=== PATIENT | female | born 1945 | race Caucasian/White ===

== ENCOUNTER → 2017-04-24 | Outpatient (CLI) | payer OTHER, MEDICARE | LOC: BMCIMAGING 13:16 | PROVIDERS: ATTEND Internal Medicine | DX: Z12.31 Encounter for screening mammogram for malignant neoplasm of breast (principal) | CPT/HCPCS: G0202 ==

== ENCOUNTER → 2017-05-08 | Outpatient (CLI) | payer OTHER, MEDICARE ==
[~2017-05-08] MED LIST: IOPAMIDOL (ISOVUE 370) 100 ML BTL IV ONE
== END ==
LOC: CIMAGING 14:11
PROVIDERS: ATTEND Internal Medicine
DX: I87.1 Compression of vein (principal); I65.23 Occlusion and stenosis of bilateral carotid arteries; M47.892 Other spondylosis, cervical region
CPT/HCPCS: 70498; Q9967

== ENCOUNTER → 2017-06-19 | Outpatient (CLI) | payer OTHER, MEDICARE | LOC: CIMAGING 11:55 | PROVIDERS: ATTEND Internal Medicine Cardiovascular Disease | DX: I74.09 Other arterial embolism and thrombosis of abdominal aorta (principal); I74.3 Embolism and thrombosis of arteries of the lower extremities; I77.89 Other specified disorders of arteries and arterioles | CPT/HCPCS: 75635; 93880; Q9967 ==

== ENCOUNTER 2017-07-19 13:28 | Inpatient (IN) | payer OTHER, MEDICARE ==
[2017-07-19] MEDS ORDERED: diphenhydrAMINE 25 MG CAP PO ONE ×2 (13:33→14:01)
[2017-07-19] MEDS ORDERED: ASPIRIN EC 325 MG TAB PO ONE ×2 (13:33→14:01)
[2017-07-19] MEDS ORDERED: FAMOTIDINE 20 MG TAB PO ONE (13:33)
[2017-07-19] MEDS ORDERED: NS 1,000 ML IV ONE ×2 (13:33→17:00)
[2017-07-19] MEDS ORDERED: DIAZEPAM 5 MG TAB PO ONE (13:33)
--- NOTE | 2017-07-19 13:59 | CPEKG ---
Heart Rate: 74 RR Interval: 811 P-R Interval: 196 QRSD Interval: 100 QT Interval: 424 QTC Interval: 471 P Liberty: 68 QRS Liberty: -4 T Wave Liberty: 55 EKG Severity - ABNORMAL ECG - EKG Impression: SINUS RHYTHM EKG Impression: PROBABLE ANTEROSEPTAL INFARCT, AGE INDETERM Electronically Signed By: Chase Napier 20-Jul-2017 20:25:34
[2017-07-19] MEDS ORDERED: DIAZEPAM 5 MG TAB ONE (14:01)
[2017-07-19] MEDS ORDERED: FAMOTIDINE 20 MG TAB ONE (14:01)
[2017-07-19 14:11] LABS: % IMMATURE GRANULYOCYTES 0.3 % (0.0-1.1); ABSOLUTE IMMATURE GRANULOCYTES 0.03 10^3/uL (0.00-0.10); ADD DIFF? NO; ADD MORPH? NO; ADD SCAN? NO; ATYPICAL LYMPHOCYTE FLAG 10 (0-99); FRAGMENT RBC FLAG 0 (0-99); HEMATOCRIT 38.4 % (38.0-47.0); HEMOGLOBIN 13.4 g/dL (12.6-16.3); LEFT SHIFT FLG 0 (0-99); LIPEMIA HEMOLYSIS FLAG 90 (0-99); MEAN CELL HEMOGLOBIN 32.1 pg (27.9-34.1); MEAN CELL HEMOGLOBIN CONCENTR. 34.9 g/dL (32.4-36.7); MEAN CELL VOLUME 91.9 fL (81.5-99.8); MEAN PLATELET VOLUME 10.3 fL (8.7-11.7); PLATELET CLUMPS FLAG 0 (0-99); PLATELET COUNT 249 10^3/uL (150-400); RED BLOOD CELL COUNT 4.18 10^6/uL (4.18-5.33); RED CELL DISTRIBUTION WIDTH 13.2 % (11.5-15.2)
[2017-07-19 14:25] LABS: INR 0.93 (0.83-1.16); PROTIME(PATIENT) 12.7 SEC (12.0-15.0)
--- NOTE | 2017-07-19 14:28 | PDHPUP ---
History & Physical Update H&P update statement: This history and physical update is based on an assessment of the patient which was completed after admission or registration (within 24 hours), but prior to the surgery/procedure. H&P update: H&P reviewed & patient examined, no change in patient's condition since H&P completed
--- NOTE | 2017-07-19 14:28 | PDPROPOC ---
Sedation Plan of Care Sedation Plan of Care: vital signs stable, mental status noted, patient educated of risks, benefits, alternatives, patient can tolerate sedation ASA Classification: ASA 2 Planned drugs: fentanyl, midazolam Mallampati Score: Class 2 Mallampati Reference Image: Patient passed 3-3-2 rule?: Yes
[2017-07-19] MEDS ORDERED: fentaNYL 100 MCG/2 ML INJ ONE ×2 (14:29→15:18)
[2017-07-19] MEDS ORDERED: LIDOCAINE 1% 300 MG/30 ML SDV ONE (14:29)
[2017-07-19] MEDS ORDERED: IOPAMIDOL (ISOVUE-370) 150 ML BTL IV ONE ×3 (14:30→15:56)
[2017-07-19] MEDS ORDERED: MIDAZOLAM 2 MG/2 ML VIAL ONE ×3 (14:30→15:56)
[2017-07-19 15:00] LABS: ANION GAP 19 mEq/L (8-16); CALCIUM 10.6 mg/dL (8.5-10.4); CARBON DIOXIDE 21 mEq/l (22-31); CHLORIDE 101 mEq/L (97-110); CHOLESTEROL 156 mg/dL (140-220); CREATININE 0.8 mg/dL (0.6-1.0); GLOMERULAR FILTRATION RATE > 60; GLUCOSE 108 mg/dL (70-100); HIGH DENSITY LIPOPROTEIN 71 mg/dL (40-85); LOW DENSITY LIPOPROTEIN 57 mg/dL (80-100); NON-HIGH DENSITY LIPOPROTEIN 85 mg/dL (90-129); POTASSIUM 3.9 mEq/L (3.5-5.2); SODIUM 141 mEq/L (134-144); TRIGLYCERIDE 142 mg/dL (35-135); VERY LOW DENSITY LIPOPROTEINS 28 mg/dL (8-25)
[2017-07-19] MEDS ORDERED: BIVALIRUDIN 250 MG/5 ML VIAL IV ONE ×2 (15:13→16:05)
[2017-07-19] MEDS ORDERED: EPINEPHrine 1 MG/10 ML SYR IVP ONE (15:58)
[2017-07-19] MEDS ORDERED: HEPARIN 10,000 UNIT/10 ML MDV ONE ×3 (16:20→16:53)
[2017-07-19] MEDS ORDERED: HEPARIN/DEXTROSE 25,000 UNIT/500 ML BAG ONE (16:22)
[2017-07-19] MEDS ORDERED: PROPOFOL 200 MG/20 ML VIAL ONE (16:48)
[2017-07-19] MEDS ORDERED: fentaNYL 250 MCG/5 ML INJ ONE ×2 (16:48)
[2017-07-19] MEDS ORDERED: ALBUMIN 5% 250 ML BOTTLE IV ONE ×2 (16:49→17:24)
[2017-07-19] MEDS ORDERED: CALCIUM CHLORIDE 1 GM/10 ML INJ ONE ×2 (16:49→16:51)
[2017-07-19] MEDS ORDERED: MAGNESIUM SULFATE 1 GM/2 ML VIAL ONE (16:50)
[2017-07-19] MEDS ORDERED: AMIODARONE HCL 150 MG/3 ML VIAL ONE ×2 (16:50→16:52)
[2017-07-19] MEDS ORDERED: LIDOCAINE 2% 100 MG/5 ML SYR ONE (16:50)
[2017-07-19] MEDS ORDERED: methylPREDNISolone SOD SUCC 1 GM/8 ML VIAL ONE (16:50)
[2017-07-19] MEDS ORDERED: CITRATE DEXTROSE SOLN 500 ML BAG ONE (16:50)
[2017-07-19] MEDS ORDERED: LIDOCAINE 1% 5 ML SDV ID PRN ×2 (16:51→17:00)
[2017-07-19] MEDS ORDERED: MILRINONE/DEXTROSE/100 ML BAG IV ONE (16:51)
[2017-07-19] MEDS ORDERED: PROTAMINE SULFATE 50 MG/5 ML VIAL IVP ONE (16:51)
[2017-07-19] MEDS ORDERED: NA BICARBONATE 50 MEQ/50 ML VIAL ONE (16:52)
[2017-07-19] MEDS ORDERED: niCARdipine/NACL/200 ML BAG IV ONE (16:52)
[2017-07-19] MEDS ORDERED: ADENOSINE 6 MG/2 ML VIAL ONE (16:52)
[2017-07-19] MEDS ORDERED: DOPamine/DEXTROSE/250 ML BAG IV ONE (16:52)
[2017-07-19] MEDS ORDERED: ceFAZolin 1 GM VIAL ONE (16:53)
[2017-07-19] MEDS ORDERED: VERAPAMIL 5 MG, NITROGLYCERIN 2.5 MG, HEPARIN 500 UNIT, SODIUM BICARBONATE 0.2 MEQ in L... MISC ONE ×2 (16:54→17:00)
[2017-07-19] MEDS ORDERED: PHENYLEPHRINE HCL 50 MG in NS 250 ML IV ONE (17:00)
[2017-07-19] MEDS ORDERED: ceFAZolin 2 GM/SWFI 2 GM/20 ML SYR IVP ONE ×2 (17:00)
[2017-07-19] MEDS ORDERED: AMINOCAPROIC ACID 5 GM/20 ML VIAL IV ONE (17:00)
[2017-07-19] MEDS ORDERED: INSULIN REGULAR HUMAN 100 UNIT in NS 100 ML IV ONE (17:00)
[2017-07-19] MEDS ORDERED: CITRATE DEXTROSE SOLN 500 ML BAG MISC ONE ×2 (17:00)
[2017-07-19] MEDS ORDERED: SODIUM BICARBONATE 20 MEQ, LIDOCAINE 1% 10 ML in NORMOSOL-R 1,000 ML MISC ONE (17:00)
[2017-07-19] MEDS ORDERED: NOREPINEPHRINE BITARTRATE 16 MG in NS 250 ML IV ONE (17:00)
[2017-07-19] MEDS ORDERED: MANNITOL 25% 12.5 GM/50 ML VIAL IVP ONE (17:00)
[2017-07-19] MEDS ORDERED: PAPAVERINE HCL 60 MG/2 ML SDV ONE ×2 (17:16→17:17)
[2017-07-19] MEDS ORDERED: VERAPAMIL 5 MG/2 ML VIAL ONE (17:18)
[2017-07-19] MEDS ORDERED: MAGNESIUM SULF 2 GM/WATER 50 ML BAG IV ONE (17:19)
[2017-07-19] MEDS ORDERED: ISOFLURANE 100 ML BOTTLE IH ONE ×2 (18:24→18:26)
[2017-07-19] MEDS ORDERED: MINERAL OIL 10 ML VIAL ONE (19:44)
[2017-07-19] MEDS ORDERED: DEXMEDETOMIDINE IN 0.9 % NACL 100 ML IV ONE (20:30)
[2017-07-19] MEDS ORDERED: METOCLOPRAMIDE 10 MG/2 ML VIAL IVP PRN (20:57)
[2017-07-19] MEDS ORDERED: CEPACOL LOZENGE PO PRN (20:57)
[2017-07-19] MEDS ORDERED: MAGNESIUM HYDROXIDE 30 ML UDCUP PO PRN (20:57)
[2017-07-19] MEDS ORDERED: ONDANSETRON DISINTEGRATING 4 MG TAB PO PRN (20:57)
[2017-07-19] MEDS ORDERED: D50W 25 GM/50 ML VIAL IVP PRN (20:57)
[2017-07-19] MEDS ORDERED: PANTOPRAZOLE SODIUM 40 MG VIAL IVP ONE (20:57)
[2017-07-19] MEDS ORDERED: POLYETHYLENE GLYCOL 3350 17 GM PKT PO PRN (20:57)
[2017-07-19] MEDS ORDERED: SODIUM CL NASAL 45 ML BTL EACHNARE PRN (20:57)
[2017-07-19] MEDS ORDERED: LACTULOSE 20 GM/30 ML UDCUP PO PRN (20:57)
[2017-07-19] MEDS ORDERED: ONDANSETRON 4 MG/2 ML VIAL IVP PRN (20:57)
[2017-07-19] MEDS ORDERED: ACETAMINOPHEN 650 MG SUPP PR PRN (20:57)
[2017-07-19] MEDS ORDERED: MAGNESIUM SULF 2 GM/WATER 50 ML IV ONE (20:57)
[2017-07-19] MEDS ORDERED: BISACODYL 10 MG SUPP PR PRN (20:57)
[2017-07-19] MEDS ORDERED: MEPERIDINE 25 MG/ML SYR IVP PRN (20:57)
[2017-07-19] MEDS ORDERED: MUPIROCIN 2% 1 APP/GM OINT *BID NS SCH (21:00)
[2017-07-19] MEDS ORDERED: INSULIN REGULAR HUMAN 100 UNIT in NS 100 ML IV SCH (21:00)
[2017-07-19] MEDS ORDERED: CHLORHEXIDINE GLUC HIBICLENS 118 ML BTL TP SCH (21:00)
[2017-07-19] MEDS: ALBUMIN 5% 250 ML IV PRN ×2 (22:00→23:00)
--- NOTE | 2017-07-19 22:01 | CPIP ---
[f rep st] INVASIVE CARDIAC PROCEDURE DATE OF PROCEDURE: 07/19/2017 PROCEDURE: 1. Coronary angiography. 2. Angioplasty of left anterior descending coronary artery. 3. Placement of intra-aortic balloon pump. INDICATION: High risk abnormal nuclear stress test with anterior ischemia. ACCESS: Patient was prepped and draped in a sterile fashion. 1% lidocaine was used to anesthetize t he right inguinal region. A 6-[place] introducer sheath was placed selectively into the right common femoral artery via modified Seldinger technique. The 6-[place] introducer sheath was later exchanged for a 7-[place] introducer sheath via exchange wire technique. 1% lidocaine was used to anesthetize t he left inguinal region. A 6-[place] introducer sheath was placed selectively into the left common fe moral artery via modified Seldinger technique. The 6-[place] introducer sheath was later exchanged fo r an 8-[place] introducer sheath via exchange wire technique. CORONARY ANGIOGRAPHY: A 6-[place] JL4 was advanced to the left main coronary artery and images obtain ed. The left main coronary artery bifurcated into an LAD and circumflex coronary arteries. The left main coronary artery appeared normal. The left anterior descending coronary artery gave rise to 1 p rominent diagonal branch. In the proximal portion of the left anterior descending coronary artery ex tending into the mid vessel, there was a single discrete 99% stenosis present. The first diagonal ar keri was a large vessel. The first diagonal artery had an ostial 20% stenosis present. The circumfl ex coronary artery was a small to moderate size vessel. The circumflex coronary artery gave rise to a single OM branch. The circumflex coronary artery had mild diffuse disease throughout. There was n o stenosis greater than 10%. A 6-[place] JR4 was advanced to the right coronary artery and images obt ained. The right coronary artery was dominant. The right coronary artery had mild diffuse disease t hroughout. In the proximal segment, there was a discrete 40% stenosis present. In the distal segmen t, there was a discreet 50% to 60% stenosis present. Percutaneous coronary intervention of the left anterior descending coronary artery. A 7-[place] EBU 3.5 catheter was advanced to the left main coron bertha artery and images obtained. Angiography confirmed the presence of high-grade disease involving t he proximal left anterior descending coronary artery in a 2 bifurcation manner. A Luge wire was plac ed in the distal LAD and position verified by angiography. Several attempts were made at trying to p ass a Prowater J-wire into the first diagonal artery. These were unsuccessful. Several attempts wer e made at trying to pass a Vehicle Body Maker 50 wire into the proximal diagonal artery. These too were unsuccess ful. Several attempts were made at trying to pass a Kinetix wire into the proximal diagonal artery. This too was unsuccessful. A Vehicle Body Maker 50 wire partially engaged the ostial segment of the diagonal art cornelia, but would prolapse with further motion. It was decided to hold intervention at this time as the diagonal renal artery could not be adequately protected and to discuss surgery. Surgery was discuss ed with the family and upon returning to the catheterization lab, patient started to develop symptoms of chest pain. Coronary angiography demonstrated 99% stenosis of the left anterior descending coron bertha artery with NIKKI 2-1/2 flow. A Luge wire was placed in the left anterior descending coronary art cornelia and position verified by angiography. A 2.5 x 12 Emerge balloon was used to pre-dilate the lesio n. The 2.5 x 12 Emerge balloon would not dilate the left anterior descending coronary artery and had a classic dog bone effect. Followup angiography demonstrated 95% residual stenosis with NIKKI 3 flow . It was decided to arrange for more urgent/emergent surgery at this point in time. While preparing for surgery. Patient had intermittent episodes of chest discomfort associated with re-narrowing of t he left anterior descending coronary artery. The lesion was dilated an additional 3 times with a 2.5 x 12 Emerge balloon, as well as 3 additional times with a 2.5 x 15 Noncompliant balloon. INTRA-AORTIC BALLOON PUMP PLACEMENT: An intra-aortic balloon pump was placed for hemodynamic support in anticipation of surgery. An 8-[place] introducer sheath was placed in the left common femoral art cornelia via modified Seldinger technique. Intra-aortic balloon pump was advanced and placed without comp lication. COMPLICATIONS: 1. Patient required urgent/emergent surgery for her high-grade disease that was not amenable to abby oplasty. CONCLUSION: 1. 2-vessel coronary artery disease. 2. Plan is for surgery. /[id number]/MODL
[2017-07-19 22:51] LABS: CALCULATED OXYGEN SATURATION 99 % (92-95); O2 CONCENTRATIION 60 % (0-100)
[2017-07-19 23:20] LABS: TROPONIN I 0.709 ng/mL (0.000-0.034)
[2017-07-20] MEDS: NS 1,000 ML IV SCH ×2 (00:24→00:25)
[2017-07-20] MEDS: MUPIROCIN 2% 22 GM OINT NS SCH ×3 (00:26→21:01)
[2017-07-20] MEDS: SENNOSIDES/DOCUSATE SODIUM TAB PO SCH ×3 (00:32→19:59)
[2017-07-20] MEDS: ceFAZolin 2 GM/DEXTROSE 100 ML IV SCH ×4 (00:33→21:16)
[2017-07-20] MEDS: ALBUMIN 5% 250 ML IV PRN ×2 (01:35→02:20)
[2017-07-20] MEDS: POTASSIUM Cl (KCl) 20 MEQ in NS 50 ML IV PRN ×3 (01:59→09:36)
[2017-07-20] MEDS ORDERED: PANTOPRAZOLE SODIUM 40 MG VIAL IVP ONE (02:00)
[2017-07-20 04:15] LABS: CALCULATED OXYGEN SATURATION 97 % (92-95); O2 CONCENTRATIION 40 % (0-100)
[2017-07-20 06:31] LABS: % IMMATURE GRANULYOCYTES 0.4 % (0.0-1.1); ABSOLUTE IMMATURE GRANULOCYTES 0.04 10^3/uL (0.00-0.10); ADD DIFF? NO; ADD MORPH? NO; ADD SCAN? NO; ATYPICAL LYMPHOCYTE FLAG 0 (0-99); FRAGMENT RBC FLAG 0 (0-99); HEMATOCRIT 28.7 % (38.0-47.0); HEMOGLOBIN 10.3 g/dL (12.6-16.3); LEFT SHIFT FLG 0 (0-99); LIPEMIA HEMOLYSIS FLAG 90 (0-99); MEAN CELL HEMOGLOBIN 32.9 pg (27.9-34.1); MEAN CELL HEMOGLOBIN CONCENTR. 35.9 g/dL (32.4-36.7); MEAN CELL VOLUME 91.7 fL (81.5-99.8); MEAN PLATELET VOLUME 10.3 fL (8.7-11.7); PLATELET CLUMPS FLAG 0 (0-99); PLATELET COUNT 99 10^3/uL (150-400); RED BLOOD CELL COUNT 3.13 10^6/uL (4.18-5.33); RED CELL DISTRIBUTION WIDTH 13.6 % (11.5-15.2)
[2017-07-20] MEDS: HEPARIN 5,000 UNIT/0.5 ML SYR SC SCH ×3 (06:45→21:01)
[2017-07-20 06:55] LABS: ANION GAP 12 mEq/L (8-16); CALCIUM 8.3 mg/dL (8.5-10.4); CARBON DIOXIDE 21 mEq/l (22-31); CHLORIDE 110 mEq/L (97-110); CREATININE 0.6 mg/dL (0.6-1.0); GLOMERULAR FILTRATION RATE > 60; GLUCOSE 141 mg/dL (70-100); SODIUM 143 mEq/L (134-144)
--- NOTE | 2017-07-20 07:03 | GOP ---
[f rep st] OPERATIVE REPORT DATE OF OPERATION: 07/19/2017 SURGEON: Cortes Purvis DO PRINTED [employer] BOARDS BEVELER: Florencio Oliver PA-C ANESTHESIOLOGIST: Cullen Pritchard MD PREOPERATIVE DIAGNOSIS: Unstable angina pectoris with subtotal occlusion with proximal left anterior descending diagonal bifurcation during coronary angiography. POSTOPERATIVE DIAGNOSIS: Unstable angina pectoris with subtotal occlusion with proximal left anterio r descending diagonal bifurcation during coronary angiography. PROCEDURE PERFORMED: 1. Emergent salvage coronary bypass grafting x3 with left internal mammary artery to the left anteri or descending, saphenous vein graft to the diagonal, and saphenous vein graft to the posterior descen ding artery. 2. Endoscopic vein harvest from the left thigh. 3. AtriClip application to the left atrial appendage. FINDINGS: DESCRIPTION OF PROCEDURE: The patient was undergoing diagnostic left heart catheterization, and in a ttempting to cross diagonal lesion bifurcation with the LAD created increased ST-segment elevation an d attempted occlusion of the LAD. A balloon dilation was performed with resolution of symptoms, whic h was required several times while awaiting surgical backup. The patient was then taken to the opera ting room, intubated, and monitoring lines were placed. She was prepped and draped in sterile classi aracely manner. A sternotomy was performed, and a good quality 2 mm LAD was harvested without difficulty . We then harvested vein from the left leg endoscopically, which was 3.3 to 3.5 mm in diameter and g ood quality. She was heparinized. The aorta was thickened in segments 3 and 4, with some calcificat ion palpated. An echo was placed, surface echo, on the ascending aorta and revealed an indwelling ar ch stent, presumably to one of her branch vessels. Although the was uncertain, he thought it was the carotid. It was protruding down to below the innominate artery. For that reason, we identi fied a soft spot on the aorta, and utilizing a Seldinger technique placed a cannula away from that gr aft so that we could avoid cannulating it directly down in descending thoracic aorta with a long gabriel rial cannula. This was confirmed with echo as both transesophageal and surface echo on the aorta. C ardiopulmonary bypass was begun. A cardioplegic arrest was obtained with antegrade cardioplegia, top ical hypothermia, and systemic cooling. We then grafted a good quality PDA that had some diffuse dis ease, but was a 2.5 mm vessel, with a good quality vein which was then brought off the ascending aort a with a cross-clamp on. We then grafted a 2.3 mm diagonal vessel with some posterior plaque with a proximal anastomosis brought off the ascending aorta with a cross-clamp on. Rewarming was begun. We then placed a 35 mm AtriClip across the left atrial appendage base without difficulty. The mammary was then grafted to the mid LAD, which was a good quality with some posterior plaque as well, but a 2 .2 to 2.3 mm vessel. It was tacked to the epicardium. The cross-clamp was removed with suction on t he ascending aortic vent. The patient was placed off bypass. Heparin was reversed with protamine. Echo confirmed no segmental wall changes. Because of V pacing, no EKG interrogation could be perform ed. Heparin had been reversed with protamine. The cannula was removed and oversewn. Two ventricula r pacing wires were placed, as were 1 left pleural and 1 mediastinal drain. The thymic fat and peric ardium were closed. The chest was closed in a standard fashion. Patient was returned to ICU in stab le condition. /[id number]/MODL
--- NOTE | 2017-07-20 07:43 | SOAPPROG ---
SOAP Progress Note Assessment/Plan: Assessment: Emergent CABG x 3 (LOUISE-LAD, SV-Dx, SV-PDA), EVH left thigh, prophylactic AtriClip ligation left atrial appendage Sx CAD w preserved LV systolic fx - Unstable angina s/p unsuccessful PCI of LAD. LCF IABP placed and taken emergently to OR. Off CPB with low dose levo and IABP at 1:1. Plan removal of IABP this am and pressor wean as tolerated. Acute postoperative respiratory insufficiency - Rested on the vent overnoc. Stable sats on min support. Expect rapid wean once IABP out. Acute expected blood loss anemia with thrombocytopenia - Stable s/p 2u PRBC. Care with anticoagulation while platelets depressed. Diabetes mellitus, type II - Postop hyperglycemia controlled with low dose insulin gtt. Transition to SSI/home OHAs per ICU/IM. Plan: Remove IABP. Switch sterling to rt femoral sheath. Extubation per pulm. Strict NPO pending [employer] ESTATE SITE ANALYST clearance for orals. Wean levo to MAP > 65. Colloid prn CVP < 10. Lasix prn CVP > 17. CTs to bulb suction if no air leak once OOB. Keep maxwell for strict I/Os. 07/20/17 07:38 Subjective: Lightly sedated on vent. Opens eyes and nods appropriately to simple questions. MAEE. Objective: Vital Signs Temp Pulse Resp BP Pulse Ox 37.9 C 80 16 99/42 L 98 07/20/17 05:57 07/20/17 05:57 07/20/17 05:57 07/20/17 05:57 07/20/17 05:57 Laboratory Results 07/20/17 06:15 07/20/17 06:15 07/19/17 07/20/17 07/21/17 05:59 05:59 05:59 Intake Total 2218.4 Output Total 1770 Balance 448.4 PT 12.7 SEC (12.0-15.0) 07/19/17 14:00 INR 0.93 (0.83-1.16) 07/19/17 14:00 IABP 1:1 overnoc, weaned down to 1:8 without incident. Levo @ 3 mcg for MAPs 60s-70s. Vent FIO2 40% with stable sats/ABGs CXR-> no PTX, mild pulm vasc congestion, left basilar atelectasis. No sig CTOP. Balanced I/Os with stable renal fx. Physical Exam - Physical Exam General Appearance: alert (when engaged), no apparent distress Respiratory: lungs clear (grossly), other (blakes x 2 y-d to pleurovac, serosang drainage, no air leak) Cardiac/Chest: regular rate, rhythm, other (Sternotomy and LLE venotomy CDI. Vwires intact.) Peripheral Pulses: 2+: dorsalis-pedis (R), dorsalis-pedis (L) Abdomen: non-tender, soft, other (hypoactive BS) Skin: warm/dry Extremities: swelling (1+ gen), other (Rt femoral sheath, left femoral IABP. Groins soft.) ICD10 Worksheet Patient Problems: Problems Problem Status Onset S/P CABG x 3 Acute chronic disease mgmt/Transitional care Acute
[2017-07-20] MEDS ORDERED: ASPIRIN 81 MG CHEWABLE TAB TUBE PRN (09:00)
[2017-07-20] MEDS: PANTOPRAZOLE SODIUM 40 MG TAB PO SCH ×2 (09:00→19:59)
[2017-07-20] MEDS ORDERED: ASPIRIN 81 MG CHEWABLE TAB PO SCH (09:00)
[2017-07-20] MEDS: fentaNYL 100 MCG/2 ML INJ IVP PRN ×4 (10:09→16:18)
[2017-07-20] MEDS ORDERED: FUROSEMIDE 20 MG/2 ML VIAL IVP ONE (10:31)
--- NOTE | 2017-07-20 12:12 | ASMTCASEMG ---
Living Arrangements What is your living Answers: With Spouse arrangement? Who do you live with? Type Of Residence What kind of residence do Answers: House you live in? Discharge Plan Comments Coordination Status Comments Notes: Patient is a 72yo female who was admitted for an emergent CABGx3. OT/PT/SPL have been ordered. D/C needs TBD. CM will follow. Date Signed: 07/20/2017 12:12 PM Electronically Signed By:Noemi Veras LCSW
--- NOTE | 2017-07-20 15:49 | GCON ---
[f rep st] CONSULTATION DATE OF CONSULTATION: 07/20/2017 REFERRING PHYSICIAN: Cortes Purvis DO REASON FOR REFERRAL: Evaluation and management of anemia and hyperglycemia. HISTORY OF PRESENT ILLNESS: The patient is a 72-year-old woman, who was being followed by Dr. Buddy maldonado or dyspnea/deconditioning. An exercise nuclear treadmill test was done on July 02, which demon strated ST-segment depression, persisting through the recovery phase. There was a moderate size, moderate intensity reversible defect, consistent with ischemia that was new compared to a study done in 2014. She was referred for an angiogram/angioplasty. There a high-grade LAD lesion was found, but could no t be dilated, and the patient developed chest pain during the procedure. An intraaortic balloon pump was placed and the patient was referred for emergency coronary artery revascularization. Dr. Purvis took her to the operating room last night and performed a three-vessel bypass. The intraoperative co urse was unremarkable. The patient's intraaortic balloon pump was removed this morning. The patient reports that she has back discomfort that is worse when she takes a deep breath. She is only able t o take shallow breaths. She denies any chest pain. She has no cough. PAST MEDICAL HISTORY: 1. Hypertension. 2. Peripheral vascular disease, status post brachiocephalic stent in 2007. 3. Dyslipidemia. 4. Prediabetes. 5. Obstructive sleep apnea. This is treated with an oral appliance, fabricated by Dr. Puentes. S he wears the device every night and reports this significantly improves her sleeping. MEDICATIONS: At the time of admission include Flonase, metformin, aspirin, amlodipine, Crestor, olme sartan/HCTZ, Bystolic. ALLERGIES: Benzocaine, clindamycin, levofloxacin, penicillin. SOCIAL HISTORY: She is a former smoker, who quit in 2009. She drinks 1 alcoholic beverage daily. FAMILY HISTORY: Unremarkable. REVIEW OF SYSTEMS: A 10-point review of systems adds nothing to the history of present illness. PHYSICAL EXAMINATION: GENERAL: The patient is awake, alert, in no acute distress. VITAL SIGNS: Bl ood pressure is 109/57, with a heart rate of 85. She is afebrile. Oxygen saturations are 93% on 3 L . HEENT: Normocephalic and atraumatic. No icterus. NECK: No adenopathy. Trachea is midline. CH EST: Clear to auscultation. CARDIAC: Regular rate and rhythm without murmur. ABDOMEN: Soft, nont yodit. Bowel sounds are present. EXTREMITIES: No clubbing, cyanosis, or edema. NEURO: The patien t is awake and alert. She is able to move all extremities, although, her left leg is somewhat limite d by pressure being applied to her intraaortic balloon pump site. LABORATORY: Chemistry group was normal. Her glucose is 117, down from 170. She is on an insulin dr ip at 1.4 units/hour. Hemoglobin is 9.5, down from a hemoglobin of 13.4 yesterday, but stable since earlier today. A white blood count is 10.6, and a platelet count is 99. A chest x-ray shows shallow inspiration and possible mild pulmonary edema with some atelectasis. Rosario ges reviewed by me. ASSESSMENT: 1. Status post urgent coronary artery bypass grafting. The patient is recovering well and is stable hemodynamically, off pressors. 2. Hyperglycemia. This is being effectively treated with an insulin drip. 3. Anemia. This is likely due to acute blood loss. There was an initial fall in her hemoglobin, bu t has been stable throughout the day today. 4. Obstructive sleep apnea. The severity of this is unknown. It is treated with an oral appliance. The patient does not currently have this oral appliance in the hospital, but usually uses it nightl y. RECOMMENDATIONS: 1. Follow hemoglobin. 2. Wean off insulin drip, using sliding scale insulin until metformin can be started. 3. The patient's will be bringing in her oral appliance, which she should use with sleep. /[id number]/MODL
[2017-07-20] MEDS: HYDROCODONE/APAP 5/325 TAB PO PRN ×2 (16:17→21:00)
[2017-07-20] MEDS ORDERED: D50W 25 GM/50 ML VIAL IVP PRN (17:28)
[2017-07-20] MEDS ORDERED: PARAMETERS MISC PRN (17:28)
[2017-07-20] MEDS ORDERED: D50W 25 GM/50 ML SYR IVP PRN (17:28)
[2017-07-20 17:39] LABS: POTASSIUM 3.9 mEq/L (3.5-5.2)
[2017-07-20] MEDS ORDERED: POTASSIUM Cl (KCl) 20 MEQ in NS 50 ML IV ONE (18:45)
[2017-07-20] MEDS: INSULIN LISPRO 100 UNIT/1 ML VIAL STANDARD SC SCH (19:09)
[2017-07-20] MEDS ORDERED: FUROSEMIDE 40 MG/4 ML VIAL IVP ONE (19:23)
[2017-07-20] MEDS ORDERED: fentaNYL 100 MCG/2 ML INJ IVP PRN (20:03)
[2017-07-20 21:28] LABS: COLOR YELLOW; LEUKOCYTE ESTERASE,URINE NEGATIVE (NEGATIVE); NITRITE,URINE NEGATIVE (NEGATIVE)
[2017-07-20 21:32] LABS: BACTERIA TRACE /hpf (NONE SEEN); MUCUS TRACE /lpf (NONE-1+); RBC,URINE 15-25 /hpf (0-3)
[2017-07-20 21:36] LABS: GRANULAR CASTS >182 /lpf (0-1)
[2017-07-20] MEDS: FLUTICASONE NASAL 120 SPRAYS/16 GM MDI EACHNARE SCH (22:11)
[2017-07-21] MEDS: ceFAZolin 2 GM/DEXTROSE 100 ML IV SCH (05:45)
[2017-07-21] MEDS: HYDROCODONE/APAP 5/325 TAB PO PRN ×2 (05:46→20:39)
[2017-07-21 06:07] LABS: HEMATOCRIT 30.3 % (38.0-47.0); HEMOGLOBIN 10.4 g/dL (12.6-16.3); MEAN CELL HEMOGLOBIN 32.8 pg (27.9-34.1); MEAN CELL HEMOGLOBIN CONCENTR. 34.3 g/dL (32.4-36.7); MEAN CELL VOLUME 95.6 fL (81.5-99.8); RED BLOOD CELL COUNT 3.17 10^6/uL (4.18-5.33); RED CELL DISTRIBUTION WIDTH 14.4 % (11.5-15.2)
[2017-07-21] MEDS: HEPARIN 5,000 UNIT/0.5 ML SYR SC SCH (06:09)
[2017-07-21 06:19] LABS: ANION GAP 13 mEq/L (8-16); CALCIUM 8.6 mg/dL (8.5-10.4); CARBON DIOXIDE 24 mEq/l (22-31); CHLORIDE 109 mEq/L (97-110); CREATININE 0.8 mg/dL (0.6-1.0); GLOMERULAR FILTRATION RATE > 60; GLUCOSE 123 mg/dL (70-100); POTASSIUM 4.4 mEq/L (3.5-5.2); SODIUM 146 mEq/L (134-144)
[2017-07-21] MEDS: INSULIN LISPRO 100 UNIT/1 ML VIAL STANDARD SC SCH ×3 (08:04→22:44)
--- NOTE | 2017-07-21 08:17 | SOAPPROG ---
<Shelia Ghotra Gatito - Last Filed: 07/21/17 10:23> SOAP Progress Note Assessment/Plan: Assessment: POD#2 Emergent CABG x 3 (LOUISE-LAD, SV-Dx, SV-PDA), EVH left thigh, prophylactic AtriClip ligation left atrial appendage Sx CAD w preserved LV systolic fx - Unstable angina s/p unsuccessful PCI of LAD. LCF IABP placed and taken emergently to OR. Off CPB with low dose levo and IABP at 1:1. Successfully weaned off hemodynamic support yest. Active diuresis of significant volume overload in progress. Secondary prevention w ASA, BB and statin when appropriate. Acute postoperative respiratory insufficiency - Rested on the vent while IABP in. Extubated yest am without incident. Acute expected blood loss anemia with thrombocytopenia - Stable s/p 2u PRBC. Care with anticoagulation while platelets depressed. Prediabetes - Controlled on Metformin. Postop hyperglycemia managed with low dose insulin gtt. Transition to SSI/home OHA per ICU/IM. Asymptomatic PVD - Hx right brachiocephalic stent and aortoiliac disease. Recent CTAs notable for patent brachiocephalic stent, but new 70% rt subclavian stenosis as well as severe aortoiliac disease with subtotalled left SFA. Does have 3 vessel runoff to both feet. She denies arm or leg claudication and is being followed by Dr Renee in [place]. Secondary prevention as per CAD. LETI - Controlled with oral appliance. Plan: Intensify IV diuresis. Consider BB this pm. Advance diet. Inc activity as tolerated. Probable tx to PCU later today. 07/21/17 08:03 Subjective: Slept well. One lap around nurse's station this am well tolerated. Starting to get hungry. Adequate analgesia. Objective: Vital Signs Temp Pulse Resp BP Pulse Ox 37.7 C 91 24 H 113/63 91 L 07/21/17 04:00 07/21/17 06:00 07/21/17 06:00 07/21/17 06:00 07/21/17 06:00 Laboratory Results 07/21/17 05:50 07/21/17 05:50 07/20/17 07/21/17 07/22/17 05:59 05:59 05:59 Intake Total 2218.4 1974 Output Total 1770 1785 Balance 448.4 189 PT 12.7 SEC (12.0-15.0) 07/19/17 14:00 INR 0.93 (0.83-1.16) 07/19/17 14:00 Stable HR, rhythm and BP. 2 Lpm suppl O2 req. Balanced I/Os with IV lasix. +9.8 kg overall. CXR-> inc pulm vasc congestion with bilat pl eff R>L CTOP thin and mostly serous. Labs as expected. Physical Exam - Physical Exam General Appearance: alert, no apparent distress Respiratory: decreased breath sounds (right base), crackles (left base), other ( blakes x 2 to bulb suction, serosang drainage; left pl tube stripped of fibrinous clot.) Cardiac/Chest: regular rate, rhythm, other (Sternotomy and LLE venotomy CDI. Vwires intact.) Abdomen: normal bowel sounds, non-tender, soft Skin: warm/dry Extremities: swelling (1+ gen), other (feet pink and warm) ICD10 Worksheet Patient Problems: Problems Problem Status Onset S/P CABG x 3 Acute chronic disease mgmt/Transitional care Acute <Sallie Sommer - Last Filed: 07/21/17 20:05> SOAP Progress Note Assessment/Plan: Patient seen and examined. Overall no major issues. Did have somewhat increased O2 requirements today - went from 2L to 5l via NC. Patient notes some L sided pain with deep inspiration. CXR with moderate R sided pleural effusion. Continue CT's for now given output. Aggressive diuresis with 40mg IV Lasix x 2 today - if unchanged R pleural effusion as well as unchanged O2 requirements tomorrow, will need R thoracentesis. SBP currently borderline - if improved today/tomorrow, start low dose beta- johana. Tx to SDU but not PCU given increased O2 requirements. Objective: Vital Signs Temp Pulse Resp BP Pulse Ox 37.2 C 90 22 H 102/52 L 96 07/21/17 16:00 07/21/17 18:00 07/21/17 18:00 07/21/17 18:00 07/21/17 18:00 Laboratory Results 07/21/17 05:50 07/21/17 05:50 07/20/17 07/21/17 07/22/17 05:59 05:59 05:59 Intake Total 2218.4 1974 1100 Output Total 177 [id number] Balance 448.4 189 -970 PT 12.7 SEC (12.0-15.0) 07/19/17 14:00 INR 0.93 (0.83-1.16) 07/19/17 14:00
--- NOTE | 2017-07-21 08:52 | HOSPPROG ---
Hospitalist Progress Note Assessment/Plan: #Diabetes with hyperglycemia #CAD: s/p CABG-3V, 07/19. ASA, statin # Objective: Vital Signs Temp Pulse Resp BP Pulse Ox 37.7 C 80 17 97/53 L 94 07/21/17 04:00 07/21/17 08:00 07/21/17 08:00 07/21/17 08:00 07/21/17 08:00 Laboratory Results 07/21/17 05:50 07/21/17 05:50 07/20/17 07/21/17 07/22/17 05:59 05:59 05:59 Intake Total 2218.4 1974 Output Total 1770 1785 Balance 448.4 189 PT 12.7 SEC (12.0-15.0) 07/19/17 14:00 INR 0.93 (0.83-1.16) 07/19/17 14:00 ICD10 Worksheet Patient Problems: Problems Problem Status Onset chronic disease mgmt/Transitional care Acute S/P CABG x 3 Acute
[2017-07-21] MEDS ORDERED: POTASSIUM CL 10 MEQ TAB PO ONE (09:00)
[2017-07-21] MEDS ORDERED: FUROSEMIDE 40 MG/4 ML VIAL IVP ONE (09:00)
[2017-07-21] MEDS ORDERED: FUROSEMIDE 40 MG/4 ML VIAL ONE (11:11)
[2017-07-21] MEDS: MUPIROCIN 2% 22 GM OINT NS SCH (11:15)
[2017-07-21] MEDS: ASPIRIN 81 MG CHEWABLE TAB PO SCH (11:16)
[2017-07-21] MEDS: PANTOPRAZOLE SODIUM 40 MG TAB PO SCH (11:16)
[2017-07-21] MEDS ORDERED: POTASSIUM CL 10 MEQ TAB ONE (11:25)
[2017-07-21] MEDS: SENNOSIDES/DOCUSATE SODIUM TAB PO SCH ×2 (11:26→20:39)
[2017-07-21] MEDS: traMADol 50 MG TAB PO PRN (11:26)
--- NOTE | 2017-07-21 13:39 | GCON ---
[f rep st] CONSULTATION DATE OF CONSULTATION: 07/19/2017 REFERRING PHYSICIAN: Cortes Purvis DO REASON FOR CONSULTATION: Management of diabetes. HISTORY OF PRESENT ILLNESS: A 72-year-old female with history of hypertension, hyperlipidemia, diabetes, coronary disease, unstable angina status post unsuccessful PCI of left anterior descending. Patient was emergently taken to the operating room and underwent emergent CABG x3. Today she states she is doing well. She worked with therapy and walked around the ICU. Minimal shortness of breath. No fevers, chills, or sweats. Has pain in the left side of her chest where the drain is located. REVIEW OF SYSTEMS: I completed a 10-point review of systems, negative except as noted in history of present illness. PAST MEDICAL HISTORY: Hypertension, hyperlipidemia, prediabetes A1c is 5.9, coronary disease, asymptomatic peripheral vascular disease, history of right brachiocephalic stents, aortoiliac disease. 70% right subclavian stenosis with subtotal left SFA. LETI. PAST SURGICAL HISTORY: Two C sections, prior angiography and breast biopsy x2. FAMILY HISTORY: Father with an FL. Paternal uncle and paternal grandmother with an FL. Maternal grandpa with an FL. Mom with a pulmonary embolism. SOCIAL HISTORY: Lives in [place]. She had a 20 pack year smoking history. Drinks a glass of wine daily. ALLERGIES: Penicillin, Levaquin, clindamycin, benzocaine, sulfa. HOME MEDICATIONS: Metformin 750 mg daily, Norvasc 5 mg every other day and the other days 2.5, Crestor 40 mg daily, fish oil, olmesartan-hydrochlorothiazide 40 -12.5 mg daily, Bystolic 20 mg daily, Flonase, vitamin D3, aspirin. PHYSICAL EXAMINATION: VITAL SIGNS: Temperature 37.7, blood pressure 102/54, heart rate in the 80s, respirations 20, 91% on 2 L, 94% on 5 L. GENERAL: A well-appearing female sitting up in chair in no acute distress. HEENT: PERRLA. EOMI. Oropharynx clear. CARDIOVASCULAR: Regular rate and rhythm. No murmurs , gallops, or rubs. Surgical incision healing. Chest drain in place. +1 lower extremity edema. ABDOMEN: Soft, nontender, nondistended. Positive bowel sounds. GENITOURINARY: No [place]. MUSCULOSKELETAL: Moving all 4 extremities. NEUROLOGIC: 2 through 12 intact. PSYCH: Alert and oriented x3 LABORATORY: Sodium 146, potassium 4.4, chloride 109, creatinine 0.8, glucose 123. UA: 10-15 WBCs, trace bacteria. WBC is 11, hemoglobin 10.4, hematocrit 30 , platelets 91. Chest x-ray personally reviewed by me: Interstitial pulmonary edema, bilateral pleural effusions, right greater than left. Aorta with runoff CTA 06/19/2017: Mild atherosclerotic disease along the right- sided runoff vessel and 3-vessel runoff to the ankle. New 2 cm focal occlusion in the mid left SFA, followed by segmental high-grade stenosis which has progressed since prior study. Three vessel runoff to the left ankle. ASSESSMENT AND PLAN: 1. Prediabetes: Glucoses have been well controlled here. Cont SSI and resume Metformin once ok from CT surg. 2. Coronary artery disease: Status post emergent coronary artery bypass graft , [address] surgery. Continue aspirin, statin. 3. Acute hypoxic respiratory failure secondary to volume overload. Lasix per CT surgery. 4. Acute blood loss anemia: As expected with surgery. Stable after 2 units RBCs. 5. Thrombocytopenia: Caution with anticoagulation. Platelets today 91. 6. Peripheral vascular disease: Followed by Dr. Renee in [place]. She is currently asymptomatic. Continue aggressive medical management with aspirin and statin. She is on a beta johana at home, but this was held with blood pressure. 7. Deconditioning: Working well with therapy. 8. Obstructive sleep apnea: CPAP. 9. Leukocytosis, mild: May be stress reaction with recent surgery. Few whites noted on urinalysis, but no sxs 10. Diet is diabetic. 11. Deep venous thrombosis prophylaxis: Ambulating. Hold on subcu heparin with thrombocytopenia. Thank you for this consultation. We will follow along. Please call if any questions. /[id number]/MODL MTDD
[2017-07-21] MEDS ORDERED: POTASSIUM CL 20 MEQ TAB PO SCH (15:00)
[2017-07-21] MEDS: FUROSEMIDE 40 MG/4 ML VIAL IVP SCH (15:49)
[2017-07-21] MEDS: POTASSIUM CL 20 MEQ TAB PO SCH (15:51)
[2017-07-21] MEDS ORDERED: PARAMETERS MISC PRN (16:14)
[2017-07-21] MEDS ORDERED: D50W 25 GM/50 ML SYR IVP PRN (16:14)
[2017-07-21] MEDS ORDERED: D50W 25 GM/50 ML VIAL IVP PRN (16:14)
--- NOTE | 2017-07-21 16:19 | PDINTPN ---
[facility] Worker Progress Note Assessment/Plan: Assessment: S/P emergent CABG: Diabetes: BSs OK on SSI LETI: Using oral appliance Pleural effusion: Likely due to interstitial edema. Anemia: H/H up a bit. Plan: Agree with BID Lasix. Check CXR tomorrow. Probably won't have to tap if diuresed. Continue use of oral appliance with sleep. Continue SSI. Follow H/H. 07/21/17 16:21 Subjective: Feels OK, starting to cough with deep breaths. Not feeling dyspneic. Slept fairly well with oral appliance. Walked without difficulty except mild balance problems. Objective: Vital Signs Temp Pulse Resp BP Pulse Ox 37.7 C 83 20 108/57 L 92 07/21/17 04:00 07/21/17 14:00 07/21/17 14:00 07/21/17 14:00 07/21/17 14:00 Laboratory Results 07/21/17 05:50 07/21/17 05:50 07/20/17 07/21/17 07/22/17 05:59 05:59 05:59 Intake Total 2218.4 1974 Output Total 1770 1785 1100 Balance 448.4 189 -1100 PT 12.7 SEC (12.0-15.0) 07/19/17 14:00 INR 0.93 (0.83-1.16) 07/19/17 14:00 CXR: Increased interstitial edema. Small-moderate right effusion. Images reviewed by me. Physical Exam - Physical Exam General Appearance: alert, no apparent distress EENT: normal ENT inspection Neck: normal inspection Respiratory: lungs clear, No normal breath sounds Cardiac/Chest: regular rate, rhythm, No edema Abdomen: normal bowel sounds, non-tender Skin: normal color, warm/dry Extremities: normal inspection Neuro/Psych: alert, normal mood/affect, oriented x 3 ICD10 Worksheet Patient Problems: Problems Problem Status Onset S/P CABG x 3 Acute chronic disease mgmt/Transitional care Acute
[2017-07-21] MEDS: FLUTICASONE NASAL 120 SPRAYS/16 GM MDI EACHNARE SCH (22:44)
[2017-07-22] MEDS: traMADol 50 MG TAB PO PRN ×2 (05:12→16:27)
[2017-07-22] MEDS: ACETAMINOPHEN 325 MG TAB PO PRN ×3 (05:12→21:36)
[2017-07-22 05:25] LABS: HEMATOCRIT 27.2 % (38.0-47.0); HEMOGLOBIN 9.5 g/dL (12.6-16.3); MEAN CELL HEMOGLOBIN 33.3 pg (27.9-34.1); MEAN CELL HEMOGLOBIN CONCENTR. 34.9 g/dL (32.4-36.7); MEAN CELL VOLUME 95.4 fL (81.5-99.8); RED BLOOD CELL COUNT 2.85 10^6/uL (4.18-5.33); RED CELL DISTRIBUTION WIDTH 14.3 % (11.5-15.2)
[2017-07-22 05:47] LABS: ANION GAP 9 mEq/L (8-16); CALCIUM 8.8 mg/dL (8.5-10.4); CARBON DIOXIDE 30 mEq/l (22-31); CHLORIDE 101 mEq/L (97-110); CREATININE 0.7 mg/dL (0.6-1.0); GLOMERULAR FILTRATION RATE > 60; GLUCOSE 105 mg/dL (70-100); SODIUM 140 mEq/L (134-144)
--- NOTE | 2017-07-22 08:18 | SOAPPROG ---
SOAP Progress Note Assessment/Plan: Assessment: POD#3 Emergent CABG x 3 (LOUISE-LAD, SV-Dx, SV-PDA), EVH left thigh ( right side looked at but abandoned), prophylactic AtriClip ligation left atrial appendage Sx CAD w preserved LV systolic fx - Unstable angina s/p unsuccessful PCI of LAD. LCF IABP placed and taken emergently to OR. Off CPB with low dose levo and IABP at 1:1. Successfully weaned off hemodynamic support yest. Active diuresis of significant volume overload in progress. Moderate sized rt pleural effusion not in communication with existing drains and will need to be evac by thoracentesis. Secondary prevention w ASA, BB and statin when appropriate. Acute postoperative respiratory insufficiency - Rested on the vent while IABP in. Extubated POD#1 without incident. Inc suppl O2 needs with enlarging rt pleural effusion. Acute expected blood loss anemia with thrombocytopenia - Stable s/p 2u PRBC. Care with anticoagulation while platelets depressed. Prediabetes - Controlled on Metformin. Postop hyperglycemia managed with low dose insulin gtt. Transition to SSI/home OHA per IM. Asymptomatic PVD - Hx right brachiocephalic stent and aortoiliac disease. Recent CTAs notable for patent brachiocephalic stent, but new 70% rt subclavian stenosis as well as severe aortoiliac disease with subtotalled left SFA. Does have 3 vessel runoff to both feet. She denies arm or leg claudication and is being followed by Dr Renee in [place]. Secondary prevention as per CAD. LETI - Controlled with oral appliance. Plan: Cont BID IV diuresis. Rt US guided thoracentesis. Tx to PCU after thoracentesis. 07/22/17 08:17 Subjective: Comfortable sitting upright. A little orthopneic in bed. A little dizzy and breathless towards end of morning walk. Objective: Vital Signs Temp Pulse Resp BP Pulse Ox 37.8 C 94 24 H 106/61 95 07/22/17 04:00 07/22/17 06:00 07/22/17 06:00 07/22/17 06:00 07/22/17 06:00 Laboratory Results 07/22/17 05:10 07/22/17 05:10 07/21/17 07/22/17 07/23/17 05:59 05:59 05:59 Intake Total 1974 1700 Output Total 1785 2540 Balance 189 -840 PT 12.7 SEC (12.0-15.0) 07/19/17 14:00 INR 0.93 (0.83-1.16) 07/19/17 14:00 Holding SR/ST. Insufficient BP for BB. Tachypneic with min activity. Persistent 5 Lpm suppl O2 needs. Improved fluid balance on BID IV diuresis. Still +5kg overall. CXR-> inc rt pl effusion, persistent pulm vasc congestion, small left pl eff despite tube in good position. Mediastinal tube output at removal criteria. Left pl tube output still a bit elevated. Labs ok. Platelet count stable. Physical Exam - Physical Exam General Appearance: alert, no apparent distress Respiratory: decreased breath sounds (rt lung, below mid scapula), other ( blakes x 2 to bulb suction, thin serosang drainage; clot stranding in left tube cleared w stripping.) Cardiac/Chest: regular rate, rhythm, other (Sternotomy and bilat venotomies CDI. Vwire intact.) Abdomen: non-tender, soft Skin: warm/dry Extremities: swelling (trace-1+) ICD10 Worksheet Patient Problems: Problems Problem Status Onset S/P CABG x 3 Acute chronic disease mgmt/Transitional care Acute
--- NOTE | 2017-07-22 08:40 | HOSPPROG ---
Hospitalist Progress Note Objective: Vital Signs Temp Pulse Resp BP Pulse Ox 36.1 C 91 21 H 104/58 L 96 07/22/17 08:00 07/22/17 08:00 07/22/17 08:00 07/22/17 08:00 07/22/17 08:00 Laboratory Results 07/22/17 05:10 07/22/17 05:10 07/21/17 07/22/17 07/23/17 05:59 05:59 05:59 Intake Total 1974 1700 Output Total 1780 2540 90 Balance 189 -840 -90 PT 12.7 SEC (12.0-15.0) 07/19/17 14:00 INR 0.93 (0.83-1.16) 07/19/17 14:00 ICD10 Worksheet Patient Problems: Problems Problem Status Onset S/P CABG x 3 Acute chronic disease mgmt/Transitional care Acute
[2017-07-22] MEDS: INSULIN LISPRO 100 UNIT/1 ML VIAL STANDARD SC SCH ×4 (09:10→21:30)
[2017-07-22 09:26] LABS: INR 1.13 (0.83-1.16); PROTIME(PATIENT) 14.7 SEC (12.0-15.0)
[2017-07-22 09:27] LABS: APTT 30.8 SEC (23.0-38.0)
[2017-07-22] MEDS: FUROSEMIDE 40 MG/4 ML VIAL IVP SCH ×2 (09:43→16:15)
[2017-07-22] MEDS: PANTOPRAZOLE SODIUM 40 MG TAB PO SCH (09:44)
[2017-07-22] MEDS: ASPIRIN 81 MG CHEWABLE TAB PO SCH (09:45)
[2017-07-22] MEDS: SENNOSIDES/DOCUSATE SODIUM TAB PO SCH ×2 (09:46→21:29)
[2017-07-22] MEDS: POTASSIUM CL 20 MEQ TAB PO SCH ×2 (09:48→14:56)
[2017-07-22] MEDS ORDERED: LIDOCAINE 1% 300 MG/30 ML SDV ONE (11:24)
--- NOTE | 2017-07-22 11:33 | PDINTPN ---
Roadmaster Progress Note Assessment/Plan: Assessment: S/P emergent CABG: Diabetes: BSs OK on SSI LETI: Using oral appliance Pleural effusion: Likely due to pulmonary interstitial edema. Anemia: H/H down a bit Plan: Continue BID Lasix. Right thoracentesis today. Continue use of oral appliance with sleep. Continue SSI. 07/22/17 11:33 Subjective: A bit difficult to take a deep breath. Pain controlled Slept OK with oral appliance. Objective: Vital Signs Temp Pulse Resp BP Pulse Ox 36.1 C 91 21 H 104/58 L 96 07/22/17 08:00 07/22/17 08:00 07/22/17 08:00 07/22/17 08:00 07/22/17 08:00 Laboratory Results 07/22/17 05:10 07/22/17 05:10 07/21/17 07/22/17 07/23/17 05:59 05:59 05:59 Intake Total 1974 1700 Output Total 1785 2540 740 Balance 189 -840 -740 PT 14.7 SEC (12.0-15.0) 07/22/17 09:10 INR 1.13 (0.83-1.16) 07/22/17 09:10 CXR: Persistent right effusion and interstitial edema. Images reviewed by me. Physical Exam - Physical Exam General Appearance: alert, no apparent distress EENT: normal ENT inspection Neck: normal inspection Respiratory: decreased breath sounds (right base) Cardiac/Chest: regular rate, rhythm, No edema Abdomen: normal bowel sounds, non-tender, soft Skin: normal color, warm/dry Extremities: normal range of motion, non-tender Neuro/Psych: alert, normal mood/affect, oriented x 3, motor weakness ICD10 Worksheet Patient Problems: Problems Problem Status Onset S/P CABG x 3 Acute chronic disease mgmt/Transitional care Acute
[2017-07-22] MEDS ORDERED: IPRATROPIUM/ALBUTEROL 3 ML DEYVIAL IH PRN (16:15)
--- NOTE | 2017-07-22 16:32 | HOSPPROG ---
Hospitalist Progress Note Assessment/Plan: #Prediabetes: glucose levels in good control. May resume Metformin. #CAD: s/p CABG #Acute hypoxic resp failure: due to effusion. Right-sided thoracentesis unsuccessful today. IV Lasix #Acute blood loss anemia: post-surgical. H/H stable after transfusion #Diet:DM Please call if questions. Subjective: breathing improved after thoracentesis Objective: Vital Signs Temp Pulse Resp BP Pulse Ox 37.2 C 101 H 22 H 101/62 96 07/22/17 16:20 07/22/17 16:20 07/22/17 16:20 07/22/17 16:20 07/22/17 16:20 Laboratory Results 07/22/17 05:10 07/22/17 05:10 07/21/17 07/22/17 07/23/17 05:59 05:59 05:59 Intake Total 1974 1700 Output Total 1785 2540 1410 Balance 189 -840 -1410 PT 14.7 SEC (12.0-15.0) 07/22/17 09:10 INR 1.13 (0.83-1.16) 07/22/17 09:10 - Physical Exam Constitutional: no apparent distress Eyes: PERRL Ears, Nose, Mouth, Throat: moist mucous membranes Cardiovascular: regular rate and rhythym, other (sternal incison healing well.) Respiratory: no respiratory distress, reduced air movement (decreased BS rBL bases) Gastrointestinal: normoactive bowel sounds Skin: warm Musculoskeletal: full muscle strength Neurologic: CN II-XII Intact ICD10 Worksheet Patient Problems: Problems Problem Status Onset S/P CABG x 3 Acute chronic disease mgmt/Transitional care Acute
[2017-07-22] MEDS: metFORMIN SR 750 MG TAB.SR PO SCH (18:25)
[2017-07-22] MEDS: METOPROLOL TARTRATE 25 MG TAB PO SCH (21:30)
[2017-07-22] MEDS: FLUTICASONE NASAL 120 SPRAYS/16 GM MDI EACHNARE SCH (22:42)
[2017-07-23] MEDS: METOPROLOL TARTRATE 25 MG TAB PO SCH ×3 (00:46→21:57)
[2017-07-23 05:39] LABS: POTASSIUM 3.8 mEq/L (3.5-5.2)
--- NOTE | 2017-07-23 07:04 | SOAPPROG ---
SOAP Progress Note Assessment/Plan: POD#4 Emergent CABG x 3 (LOUISE-LAD, SV-Dx, SV-PDA), EVH left thigh (right side looked at but abandoned), prophylactic AtriClip ligation left atrial appendage Sx CAD w preserved LV systolic fx - Unstable angina s/p unsuccessful PCI of LAD. LCF IABP placed and taken emergently to OR. Off CPB with low dose levo and IABP at 1:1. Successfully weaned off hemodynamic support. Active diuresis of significant volume overload in progress. ?Moderate sized rt pleural effusion. Secondary prevention w ASA, BB and statin when appropriate. All tubes/wires out. Acute expected blood loss anemia with thrombocytopenia - Stable s/p 2u PRBC. Platelets increasing and above 100. Prediabetes - Controlled on Metformin. Postop hyperglycemia managed with low dose insulin gtt. Transition to SSI/home OHA per IM. Asymptomatic PVD - Hx right brachiocephalic stent and aortoiliac disease. Recent CTAs notable for patent brachiocephalic stent, but new 70% rt subclavian stenosis as well as severe aortoiliac disease with subtotalled left SFA. Does have 3 vessel runoff to both feet. She denies arm or leg claudication and is being followed by Dr Renee in [place]. Secondary prevention as per CAD. LETI - Controlled with oral appliance. DVT prophylaxis - SCDs/Lovenox Disposition - Plan for home Sunday Subjective: Some left-sided pain where tubes enters. Denies SOB or CP. Objective: Vital Signs Temp Pulse Resp BP Pulse Ox 36.9 C 101 H 19 132/78 H 96 07/23/17 04:00 07/23/17 06:01 07/23/17 04:00 07/23/17 06:01 07/23/17 04:00 Laboratory Results 07/23/17 05:15 07/23/17 05:33 07/22/17 07/23/17 07/24/17 05:59 05:59 05:59 Intake Total 1700 850 Output Total 2540 2390 Balance -840 -1540 PT 14.7 SEC (12.0-15.0) 07/22/17 09:10 INR 1.13 (0.83-1.16) 07/22/17 09:10 Physical Exam - Physical Exam General Appearance: WD/WN, alert, no apparent distress EENT: No scleral icterus (R), No scleral icterus (L) Neck: normal inspection Respiratory: No respiratory distress Cardiac/Chest: regular rate, rhythm Abdomen: non-tender, soft, No distended Skin: normal color, warm/dry Extremities: No pedal edema Neuro/Psych: no motor/sensory deficits, alert, normal mood/affect, oriented x 3 ICD10 Worksheet Patient Problems: Problems Problem Status Onset S/P CABG x 3 Acute chronic disease mgmt/Transitional care Acute
[2017-07-23] MEDS ORDERED: POTASSIUM CL 20 MEQ TAB PO ONE (07:46)
[2017-07-23] MEDS: POTASSIUM CL 20 MEQ TAB PO SCH ×2 (07:58→14:14)
[2017-07-23] MEDS: ROSUVASTATIN CALCIUM 40 MG TAB PO SCH (07:58)
[2017-07-23] MEDS: PANTOPRAZOLE SODIUM 40 MG TAB PO SCH (07:59)
[2017-07-23] MEDS: ASPIRIN 81 MG CHEWABLE TAB PO SCH (07:59)
[2017-07-23] MEDS: OMEGA-3 FATTY ACIDS 1,000 MG CAP PO SCH (07:59)
[2017-07-23] MEDS: CHOLECALCIFEROL VIT D3 1,000 UNITS TAB PO SCH (07:59)
[2017-07-23] MEDS: FUROSEMIDE 40 MG/4 ML VIAL IVP SCH ×2 (08:02→14:13)
[2017-07-23] MEDS: INSULIN LISPRO 100 UNIT/1 ML VIAL STANDARD SC SCH ×4 (08:02→20:43)
[2017-07-23] MEDS: SENNOSIDES/DOCUSATE SODIUM TAB PO SCH (08:07)
--- NOTE | 2017-07-23 12:18 | ASMTCMCOM ---
CM Note CM Note Notes: 07/23/2018 Case Management Note Pt is followed by Transitional Care. Per Transitional Care after discussion with Dr. Purvis's PA [place], pt will d/c home without needs. Pt will attend cardiac rehab 3 x /week. Pt has strong family support from [place]. Case Management d/c poc: Independent when medically stable with follow up as directed. Case Management available if needs change. Date Signed: 07/23/2017 12:18 PM Electronically Signed By:Felisha Heath RN
[2017-07-23] MEDS: HEPARIN 5,000 UNIT/0.5 ML SYR SC SCH ×2 (14:11→21:57)
--- NOTE | 2017-07-23 17:08 | HOSPPROG ---
Hospitalist Progress Note Assessment/Plan: #Prediabetes: glucose levels in good control. Continue Metformin. #CAD: s/p CABG #Acute hypoxic resp failure: thoracentesis canceled, bc no effusion no US. IV Lasix #Acute blood loss anemia: post-surgical. H/H stable after transfusion #Diet:DM Please call if questions. Will sign off Subjective: no acute events Objective: Vital Signs Temp Pulse Resp BP Pulse Ox 36.8 C 101 H 20 111/72 95 07/23/17 16:00 07/23/17 16:00 07/23/17 16:00 07/23/17 16:00 07/23/17 16:00 Laboratory Results 07/23/17 05:15 07/23/17 05:33 07/22/17 07/23/17 07/24/17 05:59 05:59 05:59 Intake Total 1700 850 370 Output Total 2540 2390 1600 Balance -840 -1540 -1230 PT 14.7 SEC (12.0-15.0) 07/22/17 09:10 INR 1.13 (0.83-1.16) 07/22/17 09:10 - Physical Exam Constitutional: no apparent distress Eyes: PERRL Ears, Nose, Mouth, Throat: moist mucous membranes Cardiovascular: regular rate and rhythym Respiratory: reduced air movement (right base) Gastrointestinal: normoactive bowel sounds Genitourinary: no bladder fullness Skin: warm Musculoskeletal: full muscle strength Neurologic: AAOx3, CN II-XII Intact Psychiatric: interacting appropriately ICD10 Worksheet Patient Problems: Problems Problem Status Onset S/P CABG x 3 Acute chronic disease mgmt/Transitional care Acute
[2017-07-23] MEDS: metFORMIN SR 750 MG TAB.SR PO SCH (17:39)
[2017-07-23] MEDS ORDERED: METOPROLOL TARTRATE 25 MG TAB PO SCH (20:38)
[2017-07-23] MEDS: ACETAMINOPHEN 325 MG TAB PO PRN (21:56)
[2017-07-23] MEDS: FLUTICASONE NASAL 120 SPRAYS/16 GM MDI EACHNARE SCH (23:49)
[2017-07-24] MEDS: SENNOSIDES/DOCUSATE SODIUM TAB PO SCH ×2 (00:03→08:08)
[2017-07-24] MEDS: HEPARIN 5,000 UNIT/0.5 ML SYR SC SCH (06:31)
--- NOTE | 2017-07-24 08:00 | SOAPPROG ---
SOAP Progress Note Assessment/Plan: Assessment: POD#5 Emergent CABG x 3 (LOUISE-LAD, SV-Dx, SV-PDA), EVH left thigh ( right side looked at but abandoned), prophylactic AtriClip ligation left atrial appendage Sx CAD w preserved LV systolic fx - Unstable angina s/p unsuccessful PCI of LAD. LCF IABP placed and taken emergently to OR. Off CPB with low dose levo and IABP at 1:1. Successfully weaned off hemodynamic support POD#1. Active diuresis of significant volume overload in progress. Tubes and wires out. Secondary prevention w ASA, BB and statin. Acute postoperative respiratory insufficiency - Rested on the vent while IABP in. Extubated POD#1 without incident. Inc suppl O2 needs with opacified RLL initially felt to be fluid but surface thoracentesis neg for effusion. Presumed atelectasis responsive to pulm physiotherapy (and diuresis) and successfully weaned off supplemental O2. Acute expected blood loss anemia with thrombocytopenia - Stable s/p 2u PRBC. Platelet rebound noted. Prediabetes - Controlled on Metformin. Postop hyperglycemia managed with low dose insulin gtt. Transition to SSI/home OHA per IM. Asymptomatic PVD - Hx right brachiocephalic stent and aortoiliac disease. Recent CTAs notable for patent brachiocephalic stent, but new 70% rt subclavian stenosis as well as severe aortoiliac disease with subtotalled left SFA. Does have 3 vessel runoff to both feet. She denies arm or leg claudication and is being followed by Dr Renee in [place]. Secondary prevention as per CAD. LETI - Controlled with oral appliance. Plan: Cont metoprolol 25 mg BID. Consider inc to 37.5 mg pending post lasix BP. Reduce lasix to once daily. Shower. Cont inc activity as tolerated. Dispo - Possible discharge this afternoon if HR adequately controlled. 07/24/17 08:00 Subjective: Tired. Didn't sleep well on account of rapid heart rate and inability to find comfortable position. Doesn't quite feel ready to go home. Objective: Vital Signs Temp Pulse Resp BP Pulse Ox 37.2 C 102 H 18 110/71 92 07/24/17 07:34 07/24/17 07:34 07/24/17 07:34 07/24/17 07:34 07/24/17 07:34 Laboratory Results 07/23/17 05:15 07/23/17 05:33 07/23/17 07/24/17 07/25/17 05:59 05:59 05:59 Intake Total 850 1370 Output Total 2390 1900 Balance -1540 -530 PT 14.7 SEC (12.0-15.0) 07/22/17 09:10 INR 1.13 (0.83-1.16) 07/22/17 09:10 HR persistently 90s-100s and BB inc last noc. SBP ok. Adequate sats on RA. Adequate fluid balance. Down to +2.5kg. - Pending Discharge Pending Discharge Within 24 Hours: Yes Pending Discharge Date: 07/25/17 Pending Discharge Time: 11:00 Physical Exam - Physical Exam General Appearance: alert, no apparent distress Respiratory: lungs clear (grossly), other (CT dressing CDI) Cardiac/Chest: regular rate, rhythm, tachycardia, other (Sternum grossly stable. Sternotomy and bilat venotomies CDI) Abdomen: non-tender, soft Skin: warm/dry Extremities: other (no visible edema) ICD10 Worksheet Patient Problems: Problems Problem Status Onset S/P CABG x 3 Acute chronic disease mgmt/Transitional care Acute
[2017-07-24] MEDS: METOPROLOL TARTRATE 25 MG TAB PO SCH (08:07)
[2017-07-24] MEDS: PANTOPRAZOLE SODIUM 40 MG TAB PO SCH (08:07)
[2017-07-24] MEDS: POTASSIUM CL 20 MEQ TAB PO SCH (08:07)
[2017-07-24] MEDS: CHOLECALCIFEROL VIT D3 1,000 UNITS TAB PO SCH (08:07)
[2017-07-24] MEDS: OMEGA-3 FATTY ACIDS 1,000 MG CAP PO SCH (08:07)
[2017-07-24] MEDS: ROSUVASTATIN CALCIUM 40 MG TAB PO SCH (08:08)
[2017-07-24] MEDS: INSULIN LISPRO 100 UNIT/1 ML VIAL STANDARD SC SCH (08:08)
[2017-07-24] MEDS: ASPIRIN 81 MG CHEWABLE TAB PO SCH (08:08)
[2017-07-24] MEDS: FUROSEMIDE 40 MG/4 ML VIAL IVP SCH (08:09)
[2017-07-24] MEDS ORDERED: SENNOSIDES/DOCUSATE SODIUM TAB PO PRN (09:35)
[2017-07-24] MEDS ORDERED: METOPROLOL TARTRATE 25 MG TAB PO ONE (12:00)
[2017-07-24 12:47] VITALS: BP 113/90; PULSE 95; RESP 21; TEMP 97.9; O2SAT 91
--- NOTE | 2017-07-24 14:50 | HOSPPROG ---
Hospitalist Progress Note Assessment/Plan: DIAGNOSES: -diabetes mellitus type 2, excellent sugar range here in the hospital so far on oral therapy -status post open heart surgery PLANS: Continue her current diabetes management, diet, and monitoring SUBJECTIVE: Patient feels well, ambulating well, no shortness of breath, little pain No nausea, eating well OBJECTIVE Vitals reviewed: Stable without fever Exam: alert oriented skin warm dry color ok lungs clear BSs heart regular iv site ok Blood sugars in excellent range Objective: Vital Signs Temp Pulse Resp BP Pulse Ox 36.6 C 95 21 H 113/90 H 91 L 07/24/17 12:45 07/24/17 12:45 07/24/17 12:45 07/24/17 12:45 07/24/17 12:45 Laboratory Results 07/23/17 05:15 07/23/17 05:33 07/23/17 07/24/17 07/25/17 06:59 06:59 06:59 Intake Total 850 1370 300 Output Total 2390 1900 Balance -1540 -530 300 PT 14.7 SEC (12.0-15.0) 07/22/17 09:10 INR 1.13 (0.83-1.16) 07/22/17 09:10 ICD10 Worksheet Patient Problems: Problems Problem Status Onset S/P CABG x 3 Acute chronic disease mgmt/Transitional care Acute
--- NOTE | 2017-07-24 16:58 | ASDISCHSUM ---
Discharge Information Plan Status:Home with No Needs Medically Cleared to Leave:07/23/2017 Discharge Date:07/24/2017 04:31 PM CM D/C Disposition:Home, Routine, Self-Care ADT D/C Disposition:Home, Routine, Self-Care Projected Discharge Date:07/24/2017 04:31 PM Transportation at D/C:Family Discharge Delay Reason: Follow-Up Date:07/24/2017 04:31 PM Discharge Slot: Final Diagnosis: Placement Information Patient Contact Information Contact Name:SHADY Relationship: Address:[address] [place] [address] City:[place] Alternate Phone: [facility]/Zip Code:[place] [address] Email: Financial Information Financial Class: Primary Plan Desc:MEDICARE INPATIENT Primary Plan Number:[id number] Secondary Plan Desc:[employer]/MDR SUPPLEMENT Secondary Plan Number:[id number] Assessment Information [facility] Initial CM Assessment Living Arrangements What is your living Answers: With Spouse arrangement? Who do you live with? Type Of Residence What kind of residence do Answers: House you live in? Discharge Plan Comments Coordination Status Comments Notes: Patient is a 72yo female who was admitted for an emergent CABGx3. OT/PT/SPL have been ordered. D/C needs TBD. CM will follow. Date Signed: 07/20/2017 12:12 PM Electronically Signed By:Noemi Veras LCSW [facility] CM Progress Note CM Note CM Note Notes: 07/23/2018 Case Management Note Pt is followed by Transitional Care. Per Transitional Care after discussion with Dr. Purvis's IVANNA Mccauley, pt will d/c home without needs. Pt will attend cardiac rehab 3 x /week. Pt has strong family support from [place]. Case Management d/c poc: Independent when medically stable with follow up as directed. Case Management available if needs change. Date Signed: 07/23/2017 12:18 PM Electronically Signed By:Felisha Heath RN Intervention Information Intervention Type:*Incorrect Registration Date of Service:07/20/2017 09:23 AM Patient Type:Observation Staff Member:DANNY Mahajan Susan Hours: Discipline: Severity: Comment:
--- NOTE | 2017-07-24 21:30 | PDDCSUM ---
Discharge Summary Discharge Summary: DATE OF ADMISSION: 07/19/17 DATE OF DISCHARGE: 07/24/17 DISPOSITION: Home, self-care PRINCIPAL ADMISSION DIAGNOSIS: Abnormal nuclear stress test PRINCIPAL DISCHARGE DIAGNOSES: 1. Severe multivessel coronary artery disease 2. Status post unsuccessful PCI of LAD 3. Status post emergent coronary artery bypass grafting x 3 4. Acute expected blood loss anemia with thrombocytopenia 5. Acute postoperative respiratory insufficiency HISTORY OF PRESENT ILLNESS: 72 yo female with exertional dyspnea admitted for elective cardiac catheterization after an abnormal nuclear stress test demonstrating anterior wall ischemia. PERTINENT PAST MEDICAL HISTORY: HTN, Dyslipidemia, Prediabetes, LETI, PVD (followed by Dr Renee in [place]) MEDICATIONS ON ADMISSION: ASA 81 mg daily, Fish oil 1,000 mg daily, Crestor 40 mg daily, Olmesartan-HCTZ 40-12.5 mg one tablet daily, Nebivolol 20 mg daily, Amlodipine 2.5 mg alternating with 5 mg every other day, Metformin SR 750 mg daily, Vit D3 1,000 units daily, Flonase nasal spray 1 spray each nares HS ALLERGIES/SENSITIVITIES: benzocaine causing a local skin reaction, clindamycin causing hives, levofloxacin causing arthralgias, penicillins causing a rash, sulfa causing photosensitivity CONSULTANTS: CV surgery (Yaniv), Pulmonology/critical care (Isaias), Hospitalist (Shashank), Interventional radiology (Allyssa Palumbo) PROCEDURES/IMAGIN/7 (Jimmie): Left heart catheterization with selective coronary angiography via right common femoral artery. Attempted angioplasty of the left anterior descending coronary artery. Placement of an 8-Ukrainian introducer sheath in the left common femoral artery with flotation of an intra-aortic balloon pump. 07/19 (Yaniv): Emergent coronary artery bypass grafting x 3 (LOUISE-LAD, SV-Dx, SV- PDA). Takedown left internal mammary artery. Endoscopic evaluation of right thigh vein. Endoscopic vein harvest of left thigh. Prophylactic AtriClip ligation of the left atrial appendage. 07/22 (): Rt chest ultrasound: attempted thoracentesis aborted 07/23 (Allyssa): Rt chest ultrasound: negative for significant pleural effusion ABBREVIATED HOSPITAL COURSE BY ACTIVE PROBLEM LIST: 1. Sx CAD w preserved LV systolic fx - Unstable angina s/p unsuccessful PCI of LAD. LCF IABP placed and taken emergently to OR. Off CPB with low dose levo and IABP at 1:1. Successfully weaned off hemodynamic support POD#1. Active diuresis of significant volume overload initiated. Secondary prevention w ASA, BB, and statin. 2. Acute postoperative respiratory insufficiency - Rested on the vent while IABP in. Extubated POD#1 without incident. Inc suppl O2 needs on POD#2 assoc with opacified RLL - initially felt to be fluid but surface thoracentesis neg for significant effusion and presumed to be atelectasis. Respiratory fx steadily improved with aggressive pulmonary physiotherapy and diuresis. O2 needs resolved prior to discharge. 3. Acute expected blood loss anemia with thrombocytopenia - Stable s/p 2u PRBC. Platelet rebound noted. 4. Prediabetes - Controlled on Metformin. Postop hyperglycemia managed with low dose insulin gtt, transitioning back to Metformin as directed by IM. 5. Asymptomatic PVD - Hx right brachiocephalic stent and aortoiliac disease. Recent CTAs notable for patent brachiocephalic stent, but new 70% rt subclavian stenosis as well as severe aortoiliac disease with subtotalled left SFA. 3 vessel runoff to both feet preserved. No arm or leg claudication. Secondary prevention as per CAD. 6. LETI - Controlled with oral appliance. DISCHARGE CLINICAL INFORMATION: Sternum grossly stable. Sternotomy and bilateral leg venotomies CDI, sutured, + Dermabond. HR 90s. SBP 110s. SpO2 91% RA. Wt 2.5 kg above admission at 83 kilos. Hgb 9.5, HCT 27.2, Plt 137, Na 140, K 3.8, Cr 0.7 DISCHARGE MEDICATIONS: As on admission with the following adjustments: 1. Hold Amlodipine (Norvasc) 2. Hold Olmesartan-HCTZ (Benicar) 3. Hold Nebivolol (Bystolic) NEW prescriptions: 1. Lasix 40 mg daily 2. KlorCon 20 meq daily 3. Metoprolol 25 mg 1.5 tabs (37.5 mg) BID or as directed 4. Tramadol 50 mg q 6-8hrs prn breakthrough incisional discomfort not controlled by ES Tylenol. FOLLOW UP APPOINTMENTS: 1. CV surgery: with Dr Purvis at [facility] on 07/31 at 1:15 pm. 2. Cardiology: with Dr Goodwin at [facility] [place] within 4-6 weeks. Appointment to be established during surgical visit. FOLLOW UP TESTING: CXR prior to surgical appointment.
[2017-07-25] MEDS ORDERED: POTASSIUM CL 20 MEQ TAB PO SCH (09:00)
[2017-07-25] MEDS ORDERED: FUROSEMIDE 40 MG TAB PO SCH (09:00)
== END 2017-07-24 16:31 | disposition home or self-care (01) | DRG 232 ==
LOC: FCATH 13:28 → F2W 15:53 → F2N 16:53 → OBSVTOIN 20:58 → F2N 21:38 → F2W 07-22 17:03
PROVIDERS: ADMIT Internal Medicine Cardiovascular Disease; ATTEND Thoracic Surgery (Cardiothoracic Vascular Surgery)
PROC: 021109W Bypass Coronary Artery, Two Arteries from Aorta with Autologous Venous Tissue, Open Approach (ICD-10-PCS; principal; 2017-07-19 17:00)
PROC: 02L70CK Occlusion of Left Atrial Appendage with Extraluminal Device, Open Approach (ICD-10-PCS; principal; 2017-07-19 17:00)
PROC: 02100Z9 Bypass Coronary Artery, One Artery from Left Internal Mammary, Open Approach (ICD-10-PCS; principal; 2017-07-19 17:00)
PROC: 06BQ4ZZ Excision of Left Saphenous Vein, Percutaneous Endoscopic Approach (ICD-10-PCS; principal; 2017-07-19 17:00)
PROC: 5A1221Z Performance of Cardiac Output, Continuous (ICD-10-PCS; principal; 2017-07-19 17:00)
PROC: 4A023N7 Measurement of Cardiac Sampling and Pressure, Left Heart, Percutaneous Approach (ICD-10-PCS; 2017-07-19 17:00)
PROC: B2151ZZ Fluoroscopy of Left Heart using Low Osmolar Contrast (ICD-10-PCS; 2017-07-19 17:00)
PROC: 02703ZZ Dilation of Coronary Artery, One Artery, Percutaneous Approach (ICD-10-PCS; 2017-07-19 17:00)
PROC: B2111ZZ Fluoroscopy of Multiple Coronary Arteries using Low Osmolar Contrast (ICD-10-PCS; 2017-07-19 17:00)
DX: I25.110 Atherosclerotic heart disease of native coronary artery with unstable angina pectoris (principal); D62 Acute posthemorrhagic anemia; D69.6 Thrombocytopenia, unspecified; R06.89 Other abnormalities of breathing; G47.33 Obstructive sleep apnea (adult) (pediatric); R73.9 Hyperglycemia, unspecified; R73.03 Prediabetes; I73.9 Peripheral vascular disease, unspecified; E78.5 Hyperlipidemia, unspecified; I10 Essential (primary) hypertension; Z87.891 Personal history of nicotine dependence
CPT/HCPCS: 82947-QW; 92610-GN; 97116-GP; 97161-GP; 97165-GO; 97530-GO; 97530-GP; 97535-GO; C1725; C1769; C1887; G8978-GP-CJ; G8979-GP-CI; G8987-GO-CJ; G8988-GO-CI; G8996-GN-CH; G8997-GN-CH; G8998-GN-CH; J0153; J0282; J0583; J0690; J1265; J1644; J1815; J1940; J2001; J2150; J2250; J2260; J2370; J2405; J2440; J2704; J2720; J2930; J3010; J7060; P9016; P9041; Q9967

== ENCOUNTER → 2017-08-02 | Outpatient (CLI) | payer OTHER, MEDICARE | LOC: FIMAGING 12:30 | PROVIDERS: ATTEND Thoracic Surgery (Cardiothoracic Vascular Surgery) | DX: Z09 Encounter for follow-up examination after completed treatment for conditions other than malignant neoplasm (principal); J90 Pleural effusion, not elsewhere classified; J98.11 Atelectasis ==

== ENCOUNTER 2017-08-05 12:14 | Observation (INO) | payer OTHER, MEDICARE ==
--- NOTE | 2017-08-05 12:51 | CPEKG ---
Heart Rate: 90 RR Interval: 667 P-R Interval: 176 QRSD Interval: 88 QT Interval: 376 QTC Interval: 460 P [place]: 59 QRS [place]: -6 T Wave [place]: 106 EKG Severity - ABNORMAL ECG - EKG Impression: SINUS RHYTHM EKG Impression: PROBABLE ANTEROSEPTAL INFARCT, AGE INDETERM EKG Impression: LATERAL LEADS ARE ALSO INVOLVED Electronically Signed By: Michelle Mcintyre 05-Aug-2017 20:34:27
--- NOTE | 2017-08-05 13:14 | EDPHY ---
HPI/HX/ROS/PE/MDM Narrative: CHIEF COMPLAINT: Strong, rapid heart rate HISTORY OF PRESENT ILLNESS: The patient is an anticoagulated (aspirin) 72 y/o female with a history of hypertension, pre-diabetes, and quadruple bypass complaining of several episodes of rapid and strong heart rate lasting 2 to 3 minutes onset this morning. The patient had a quadruple bypass here on the and was released on the . During her time here she was noted to have some "gurgling" in her lower right lung attributed to atelectasis and pleural effusion. Since her surgery, she has been up and moving around but has had some difficulty getting tired and falling asleep. This morning, while reading the paper, she had three episodes of rapid, strong heart rate. She describes these episodes as her heart "fluttering" irregularly and lasting two to three minutes. She denies feeling lightheaded during the episode. She denies chest pain, shortness of breath, nausea, fever, chills, diarrhea, urinary complaints, or any other associated symptoms. She denies history of atrial fibrillation. She quit smoking 9 years ago and denies pulmonary history. No fever, chills, chest pain, shortness of breath, palpitations, vomiting, diarrhea, urinary complaints, headache, lightheadedness. REVIEW OF SYSTEMS: Aside from elements discussed in the HPI, a comprehensive 10-point review of systems was reviewed and is negative. PAST MEDICAL HISTORY: Stent in the right brachial cephalic artery, quadruple bypass on 07/20/17, hypertension, prediabetes SOCIAL HISTORY: at bedside, family lives in [place], retired VITAL SIGNS: Reviewed by me GENERAL: Pleasant, well-developed, well-nourished, resting comfortably in no respiratory distress. HEENT: Atraumatic. Eyes: No icterus, no injection. Mouth: moist mucous membranes. No erythema or lesions. Neck: supple with no adenopathy. LUNGS: Clear to auscultation bilaterally, no wheezes, rhonchi or rales. CARDIAC: Healing median sternotomy scar, regular rate and rhythm, no rubs, murmurs or gallops. ABDOMEN: Soft, nontender, nondistended, bowel sounds normal. BACK: No CVA tenderness. EXTREMITIES: Trace edema bilaterally. No trauma. Range of motion is normal throughout. NEURO: Alert and oriented, grossly nonfocal. SKIN: Warm and dry, no rash. PSYCHIATRIC: Normal mentation, no agitation. ED Course: X-ray: Chest x-ray was obtained. I viewed the images myself on the PACS system. My interpretation of the images is: worsening pleural effusion. The radiologist interpretation is pending at this time. I discussed the x-ray findings with the patient. 12-LEAD EKG: Please see the full report in [facility]. My interpretation: Atrial fibrillation The patient presents with several runs of rapid, strong heart rate post quadruple bypass 07/20/17. She denies chest pain, shortness of breath, or other associated symptoms. Prior to my exam she had a spike in heart rate from 87 to 154 over the course of 15 seconds. On exam her lungs are clear bilaterally and her scar is healing well. I will reach out to her cardiothoracic surgeon, Dr. Purvis. 1315: The print out of the heart monitor shows that during her heart rate spike she was in atrial fibrillation. 1349: Chest X-ray shows slightly worsened pleural effusion. 1409: The patient has now had two more episodes of atrial fibrillation. I am stilling trying to get in contact with her cardiothoracic surgeon, Dr. Purvis, as he and his PA are in an emergent surgery. I have informed the patient of the increased fluid in her right lung and the runs of atrial fibrillation. I anticipate that she will be admitted. 1429: I consulted with Dr. Purvis, cardiothoracic surgeon. He directed me to consult with cardiology. 1441: I spoke with the hospitalist service regarding admission for this patient. They agree to admit. Dr. Paulie Olivera will be admitting physician. 1445: The patient has now had 5 runs of atrial fibrillation. I will give a diltiazem bolus and will continue as directed by cardiology. - Data Points Imaging Results: Imaging Impressions Chest X-Ray 08/05/17 13:13 Impression: 1. Postoperative study with findings of low-grade congestive heart failure/ fluid overload. 2. Basilar atelectasis and increased right pleural effusion. Laboratory Results: Laboratory Results 08/05/17 12:45 08/05/17 12:45 08/05/17 08/05/17 12:45 12:45 WBC 12.91 10^3/uL H 10^3/uL (3.80-9.50) RBC 3.46 10^6/uL L 10^6/uL (4.18-5.33) Hgb 10.7 g/dL L g/dL (12.6-16.3) Hct 32.0 % L % (38.0-47.0) MCV 92.5 fL fL (81.5-99.8) MCH 30.9 pg pg (27.9-34.1) MCHC 33.4 g/dL g/dL (32.4-36.7) RDW 14.0 % % (11.5-15.2) Plt Count 463 10^3/uL H 10^3/uL (150-400) MPV 9.4 fL fL (8.7-11.7) Neut % (Auto) 73.0 % % (39.3-74.2) Lymph % (Auto) 12.7 % L % (15.0-45.0) [place] % (Auto) 8.3 % % (4.5-13.0) Eos % (Auto) 4.8 % % (0.6-7.6) Baso % (Auto) 0.7 % % (0.3-1.7) Nucleat RBC Rel Count 0.0 % % (0.0-0.2) Absolute Neuts (auto) 9.43 10^3/uL H 10^3/uL (1.70-6.50) Absolute Lymphs (auto) 1.64 10^3/uL 10^3/uL (1.00-3.00) Absolute Monos (auto) 1.07 10^3/uL H 10^3/uL (0.30-0.80) Absolute Eos (auto) 0.62 10^3/uL H 10^3/uL (0.03-0.40) Absolute Basos (auto) 0.09 10^3/uL 10^3/uL (0.02-0.10) Absolute Nucleated RBC 0.00 10^3/uL 10^3/uL (0-0.01) Immature Gran % 0.5 % % (0.0-1.1) Immature Gran # 0.06 10^3/uL 10^3/uL (0.00-0.10) Sodium 135 mEq/L mEq/L (134-144) Potassium 4.5 mEq/L mEq/L (3.5-5.2) Chloride 99 mEq/L mEq/L (97-110) Carbon Dioxide 21 mEq/l L mEq/l (22-31) Anion Gap 15 mEq/L mEq/L (8-16) BUN 14 mg/dL mg/dL (7-23) Creatinine 0.7 mg/dL mg/dL (0.6-1.0) Estimated GFR > 60 Glucose 112 mg/dL H mg/dL (70-100) Calcium 9.5 mg/dL mg/dL (8.5-10.4) Troponin I 0.028 ng/mL ng/mL (0.000-0.034) NT-Pro-B Natriuret Pep 1090 pg/mL H pg/mL (0-125) General Time Seen by Provider: 08/05/17 13:00 Initial Vital Signs: Initial Vital Signs Temperature (C) 36.6 C 08/05/17 12:21 Heart Rate 94 08/05/17 12:21 Respiratory Rate 18 08/05/17 12:21 Blood Pressure 133/84 H 08/05/17 12:21 O2 Sat (%) 95 08/05/17 12:21 O2 Delivery Mode Nasal Cannula O2 (L/minute) 2 Allergies/Adverse Reactions: benzocaine Allergy (Verified 08/05/17 12:19) Other-Enter Comments clindamycin Allergy (Verified 08/05/17 12:19) Hives levofloxacin [From Levaquin] Allergy (Verified 08/05/17 12:19) Arthralgia Penicillins Allergy (Verified 08/05/17 12:19) Rash Sulfa (Sulfonamide Antibiotics) [Sulfa(Sulfonamide Antibiotics)] Allergy ( Verified 08/05/17 12:19) Photosensitivity Home Medications: Medication Instructions Recorded Aspirin [Aspirin 81mg (*)] 81 mg PO DAILY 07/19/17 Rosuvastatin Calcium [Crestor 40mg 40 mg PO DAILY 07/19/17 (*)] metFORMIN SR [Glucophage XR 750 mg 750 mg PO DAILY@1900 07/19/17 (*)] Metoprolol Tartrate [Lopressor 25 37.5 mg PO BID #120 tab 07/24/17 mg (*)] traMADol [Ultram 50 mg (*)] 50 mg PO Q6-8PRN PRN #20 tab 07/24/17 amLODIPine BESYLATE [Norvasc 2.5 2.5 mg PO DAILY 08/05/17 mg (*)] Departure - Departure Disposition: [facility] Inpatient Acute Clinical Impression: Pleural effusion Atrial fibrillation Qualifiers: Atrial fibrillation type: unspecified Qualified Code(s): I48.91 - Unspecified atrial fibrillation Condition: Fair Report Scribed for: Michelle Mcintyre Report Scribed by: Shahla Shah Date of Report: 08/05/17 Time of Report: 14:10 Physician Review and Approval Statement: Portions of this note were transcribed by a medical laboratory technologist. I personally performed a history, physical exam, medical decision making, and confirmed accuracy of information the transcribed note.
[2017-08-05 13:17] LABS: % IMMATURE GRANULYOCYTES 0.5 % (0.0-1.1); ABSOLUTE IMMATURE GRANULOCYTES 0.06 10^3/uL (0.00-0.10); ADD DIFF? NO; ADD MORPH? NO; ADD SCAN? NO; ATYPICAL LYMPHOCYTE FLAG 20 (0-99); FRAGMENT RBC FLAG 0 (0-99); HEMOGLOBIN 10.7 g/dL (12.6-16.3); LEFT SHIFT FLG 10 (0-99); LIPEMIA HEMOLYSIS FLAG 80 (0-99); MEAN CELL HEMOGLOBIN 30.9 pg (27.9-34.1); MEAN CELL HEMOGLOBIN CONCENTR. 33.4 g/dL (32.4-36.7); MEAN CELL VOLUME 92.5 fL (81.5-99.8); MEAN PLATELET VOLUME 9.4 fL (8.7-11.7); PLATELET CLUMPS FLAG 0 (0-99); PLATELET COUNT 463 10^3/uL (150-400); RED BLOOD CELL COUNT 3.46 10^6/uL (4.18-5.33)
[2017-08-05 13:31] LABS: ANION GAP 15 mEq/L (8-16); CALCIUM 9.5 mg/dL (8.5-10.4); CARBON DIOXIDE 21 mEq/l (22-31); CHLORIDE 99 mEq/L (97-110); CREATININE 0.7 mg/dL (0.6-1.0); GLOMERULAR FILTRATION RATE > 60; GLUCOSE 112 mg/dL (70-100); POTASSIUM 4.5 mEq/L (3.5-5.2); SODIUM 135 mEq/L (134-144)
[2017-08-05 13:43] LABS: TROPONIN I 0.028 ng/mL (0.000-0.034)
[2017-08-05] MEDS ORDERED: DILTIAZEM 25 MG/5 ML VIAL IVP ONE (14:57)
--- NOTE | 2017-08-05 15:12 | ASMTCMCOM ---
CM Note CM Note Notes: Patient presented to ED after experiencing rapid heart rate at home. She is s/p emergent CABG x3 on 07/[address] Purvis. She was discharged home on 07/24 with her and instructions to go to cardiac rehab 3x week. As mentioned, this morning she complained of a rapid, strong "fluttery" heart rate. She has had five episodes of A-fib in the ED. She will be admitted to the PCU for monitoring. Discharge needs TBD. Date Signed: 08/05/2017 03:13 PM Electronically Signed By:Elena Gifford RN
[2017-08-05] MEDS ORDERED: FUROSEMIDE 20 MG/2 ML VIAL IVP ONE (15:31)
[2017-08-05] MEDS ORDERED: ACETAMINOPHEN 325 MG TAB PO PRN (15:35)
[2017-08-05] MEDS ORDERED: traMADol 50 MG TAB PO PRN (15:38)
[2017-08-05] MEDS ORDERED: FUROSEMIDE 40 MG/4 ML VIAL IVP ONE (15:41)
--- NOTE | 2017-08-05 15:44 | SOAPPROG ---
[facility] Progress Note Assessment/Plan: Assessment: 1. Coronary artery disease status post coronary artery bypass grafting now a little bit over 2 weeks ago. 2. Perioperative paroxysmal atrial fibrillation. 3. History of PVD with previous brachiocephalic stenting. 4. Dyslipidemia. 5. History of pre diabetes. 6. History of obstructive sleep apnea treated with an oral appliance. Plan: 1. She will be admitted to the hospital and monitored. 2. I started her on amiodarone 200 mg twice daily. 3. I will reduce her metoprolol down to 25 mg twice daily. 4. She will be started on Eliquis 5 mg twice daily for thromboprophylaxis. 5. I have ordered an echocardiogram. 6. She has been given a single dose of intravenous Lasix. 7. We will follow along with you. 08/05/17 15:45 Subjective: The patient was seen and examined. Her chart was reviewed. She is typically seen as an outpatient by Dr. Roman Goodwin and Christopher Samuel. She has known coronary artery disease. She initially presented with shortness of breath. She had an abnormal nuclear stress test done in late June. A subsequent angiogram demonstrated left anterior descending coronary artery disease and right coronary disease. PCI was attempted however ultimately this was unsuccessful and she underwent multivessel bypass surgery on 07/19/2017. At that time, she had a LOUISE to the LAD, SVG to a diagonal branch and a saphenous vein graft to the right coronary artery. Do not see that there is an echocardiogram in our system however there may have been 1 at the [facility]. She had a relatively uncomplicated postoperative course and was discharged home after about 5 days. She has been attending cardiac rehab. She called me earlier today with complaints of palpitations. She notes that her heart is beating erratically a very forcefully in her chest. This was not associated with significant discomfort. As result she was directed to the emergency department. In the emergency department she was initially noted to be in sinus rhythm. She was experiencing salvos of atrial fibrillation with heart rates up into the 130-140 beat per minute range. She was treated with intravenous diltiazem. When I was examining her she spontaneously reverted back to sinus rhythm. She is currently not on systemic anticoagulation. She takes 37.5 mg of metoprolol twice a day. Objective: Vital Signs Temp Pulse Resp BP Pulse Ox 36.9 C 88 18 131/92 H 97 08/05/17 14:00 08/05/17 14:00 08/05/17 15:05 08/05/17 15:05 08/05/17 15:05 08/04/17 08/05/17 08/06/17 05:59 05:59 05:59 Intake Total 20 Balance 20 Her electrocardiogram demonstrates normal sinus rhythm with late R-wave progression and low voltages. Her chest x-ray demonstrates postoperative changes consistent with her recent heart surgery as well as small bilateral effusions. Physical Exam - Physical Exam General Appearance: WD/WN, no apparent distress Respiratory: lungs clear, No decreased breath sounds, No crackles, No rales, No rhonchi Cardiac/Chest: regular rate, rhythm, other (Sternal wound is healing well), No edema, No gallop, No JVD Peripheral Pulses: 2+: carotid (R), carotid (L) Abdomen: normal bowel sounds, non-tender, soft Pelvic Exam: deferred Rectal: deferred Skin: warm/dry Neuro/Psych: alert, normal mood/affect, oriented x 3 ICD10 Worksheet Patient Problems: Problems Problem Status Onset Atrial fibrillation Acute Pleural effusion Acute S/P CABG x 3 Acute chronic disease mgmt/Transitional care Acute
[2017-08-05] MEDS ORDERED: DILTIAZEM 125 MG in D5W 125 ML IV SCH (15:45)
--- NOTE | 2017-08-05 16:12 | GHP ---
[f rep st] HISTORY AND PHYSICAL DATE OF ADMISSION: 08/05/2017 CHIEF COMPLAINT: Palpitations. HISTORY OF PRESENT ILLNESS: The patient is a pleasant 72-year-old female, with a past medical histor y of coronary artery disease, undergoing a recent coronary artery bypass grafting on 07/19/2017, who presented to the [facility] emergency room after developing palpitations and tachycar petar early this morning. The patient states that the symptoms have been intermittent throughout the d ay today. During her evaluation in the emergency room, it was noted that she was going in and out of atrial fibrillation, with heart rate up to the 140s to 150s at times. She denies any chest pressure or any difficulty breathing. She has been undergoing cardiac rehab and has had cardiology followup since her recent discharge from the hospital. She has noted a slightly increased amount of swelling in her upper extremities, not so much in her lower extremities. PAST MEDICAL HISTORY: 1. Coronary artery disease, status post CABG x3 by Dr. Purvis, on 07/19/2017. 2. Hypertension. 3. Peripheral vascular disease. 4. Obstructive sleep apnea. 5. Hyperlipidemia. 6. Impaired fasting glucose with a recent hemoglobin A1c of 5.9%. PAST SURGICAL HISTORY: 1. CABG x3. 2. Right brachiocephalic stents. 3. x2. 4. Breast biopsy x2. MEDICATIONS: This medication list is taken from her recent discharge summary, as well as discussions with the patient on recent adjustments. 1. Aspirin 81 mg daily. 2. Crestor 40 mg daily. 3. Metoprolol 50 mg twice a day. 4. Amlodipine 2.5 mg daily. 5. Metformin extended release 750 mg daily. ALLERGIES: 1. Penicillin. 2. Levaquin. 3. Clindamycin. 4. Sulfa. 5. Benzocaine. SOCIAL HISTORY: Patient is a former smoker with a [id number] history, but has quit. She is curren tly and has 2 daughters. Her would be her [id number] in case she were unable to make medical decisions for herself. CODE STATUS: Was reviewed and she is a full code status. FAMILY HISTORY: Dad secondary to myocardial infarction. Mother secondary to pulmonary emb olism. REVIEW OF SYSTEMS: CONSTITUTIONAL: No complaints of any fevers or chills. ENT: No recent upper re spiratory illnesses. CARDIOVASCULAR: No complaints of any chest pressure. Positive for palpitation s. RESPIRATORY: No complaints of shortness of breath or productive cough. GI: No nausea, vomiting , diarrhea, or constipation. : No report of any difficulty with urination. NEUROLOGIC: No compl aints of any headaches or focal weakness. No history of any TIAs or strokes. HEMATOLOGIC: No histo ry of any deep vein thrombosis or pulmonary embolism. PSYCHIATRIC: No history of anxiety or depress ion. ENDOCRINE: No history of thyroid abnormalities. She does have a history listed of prediabetes in her records. SKIN: No skin rashes. MUSCULOSKELETAL: No focal joint pains. PHYSICAL EXAMINATION: VITAL SIGNS: Temperature 36.6, blood pressure 133/84, heart rate 94, respirat ions 18, saturating 95% on room air. GENERAL: Patient appears comfortable. She is awake, alert, co nversant, in no acute distress. She is, however, keenly aware when she is in atrial fibrillation and can tell almost instantaneously. HEENT: Extraocular movements intact. Pupils are equal. No scler al icterus. Mucous membranes moist. NECK: No carotid bruits appreciated. No thyroid enlargement n oted. CHEST: Clear on auscultation with normal respiratory effort. HEART: Regular. No murmurs ar e appreciated. In looking at the telemetry monitoring, and she went in and out of atrial fibrillatio n approximately 3-4 times during my assessment with her. ABDOMEN: Soft, nontender, nondistended. G U: No Monterroso catheter in place. EXTREMITIES: Trace pitting edema of both upper and lower extremitie s. MUSCULOSKELETAL: No calf pain with palpation. NEUROLOGIC: Cranial nerves 2-12 appear intact. Strength 5/5 in all extremities. LABORATORY DATA: White blood cell count is 12, hemoglobin 10.7, platelets 463. Sodium is 135, potas sium 4.5, chloride 99, bicarb 21, BUN 14, creatinine 0.7, glucose of 112. Troponin is less than 0.02 8. BNP 1090. IMAGING: Chest x-ray, which I personally reviewed myself as well, showed postoperative study with fi ndings of low-grade congestive heart failure or fluid overload bibasilar atelectasis and increased ri ght pleural effusion. ASSESSMENT/PLAN: 1. Atrial fibrillation. This is accounting for her palpitations. This appears to be paroxysmal. C ardiology has been consulted on her case and she has been given a dose of diltiazem 20 mg IV here in the emergency room. By my calculation, her CHADS2-VASc score is 4, so I would recommend anticoagulat ion at this point time. For now, I will start Lovenox until we have a further discussion on oral ant icoagulants. We will continue with diltiazem drip for now for rate control, as long as her blood pre ssure tolerates. 2. Leukocytosis. No definite signs or symptoms of infection at the current time, possibly reactive. We will recheck in the morning. Monitor for any fevers overnight. 3. Edema. The patient states Lasix was stopped last week. However, based on her chest x-ray findin gs and her edema on exam, we will continue with Lasix IV dosing for now, along with potassium supplem entation. 4. Acute blood loss anemia. This was earlier this month with her surgery, as expected blood losses. Her hemoglobin today is 10.7, which is actually up from 9.5, from her most recent hemoglobin assess ment. Clinically, without any active bleeding, so we will continue with plan for starting anticoagul ation at this time. 5. Coronary artery disease. Currently, seems asymptomatic. Continue with Crestor and aspirin. 6. Hypertension. The patient states that her metoprolol was recently increased to 50 mg twice a day , and amlodipine 2.5 mg daily was added. She was previously on olmesartan/hydrochlorothiazide as wel l, but this has not been resumed as of yet. We will hold for now, as we are starting the diltiazem d rip. 7. Impaired fasting glucose. Reported recent hemoglobin A1c of 5.9%. We will continue with current metformin. 8. Bowel and bladder. Consider bowel regimen if constipation develops. 9. Deep venous thrombosis prophylaxis. Patient will be anticoagulated. 10. Disposition: I anticipate patient could be discharged as soon as tomorrow if adequate rate cont rol and we have a decision on anticoagulation as well. Admit her under observation status. /[id number]/MODL
[2017-08-05] MEDS ORDERED: metFORMIN SR 750 MG TAB.SR PO SCH (19:00)
[2017-08-05] MEDS: AMIODARONE HCL 200 MG TAB PO SCH (20:37)
[2017-08-05] MEDS: METOPROLOL TARTRATE 25 MG TAB PO SCH (20:38)
[2017-08-05] MEDS: APIXABAN 5 MG TAB PO SCH (20:38)
[2017-08-06 04:25] LABS: ANION GAP 10 mEq/L (8-16); CALCIUM 9.6 mg/dL (8.5-10.4); CARBON DIOXIDE 28 mEq/l (22-31); CHLORIDE 100 mEq/L (97-110); CREATININE 0.7 mg/dL (0.6-1.0); GLOMERULAR FILTRATION RATE > 60; GLUCOSE 101 mg/dL (70-100); POTASSIUM 4.2 mEq/L (3.5-5.2); SODIUM 138 mEq/L (134-144)
[2017-08-06] MEDS: METOPROLOL TARTRATE 25 MG TAB PO SCH (08:20)
[2017-08-06] MEDS: AMIODARONE HCL 200 MG TAB PO SCH (08:20)
[2017-08-06] MEDS: APIXABAN 5 MG TAB PO SCH (08:21)
[2017-08-06] MEDS ORDERED: ROSUVASTATIN CALCIUM 40 MG TAB PO SCH (09:00)
[2017-08-06] MEDS ORDERED: FUROSEMIDE 40 MG/4 ML VIAL IVP SCH (09:00)
[2017-08-06] MEDS ORDERED: ASPIRIN 81 MG CHEWABLE TAB PO SCH (09:00)
--- NOTE | 2017-08-06 09:25 | SOAPPROG ---
ASHANTI Progress Note Assessment/Plan: Assessment: 1. Coronary artery disease status post coronary artery bypass grafting 2. Perioperative paroxysmal atrial fibrillation. 3. History of PVD with previous brachiocephalic stenting. 4. Dyslipidemia. 5. History of pre diabetes. 6. History of obstructive sleep apnea treated with an oral appliance. Impression: Feeling back to normal baseline. She has returned to sinus rhythm. Continue amiodarone 200 mg p. O. twice daily for 2 weeks then 200 mg a day. Continue Eliquis for thromboprophylaxis. Patient can be discharged from my point of view. Return to cardiac rehabilitation with daily walking and exercise. 08/06/17 09:22 08/06/17 09:24 Subjective: Feeling back to baseline. Converted to sinus rhythm. No chest pain, shortness of breath, PND, orthopnea. Objective: Medications Generic Name Dose Route Start Last Admin Trade Name Freq PRN Reason Stop Dose Admin Amiodarone HCl 200 mg 08/05/17 21:00 08/06/17 08:20 Amiodarone Hcl PO 02/01/18 20:59 200 mg BID [facility] Apixaban 5 mg 08/05/17 21:00 08/06/17 08:21 Eliquis PO 02/01/18 20:59 5 mg BID [facility] Aspirin 81 mg 08/06/17 09:00 08/06/17 08:20 Aspirin PO 02/02/18 08:59 81 mg DAILY [facility] Metformin HCl 750 mg 08/05/17 19:00 08/05/17 18:22 Glucophage Xr PO 02/01/18 18:59 750 mg DAILY@1900 [facility] Metoprolol Tartrate 25 mg 08/05/17 21:00 08/06/17 08:20 Lopressor PO 02/01/18 20:59 25 mg BID [facility] Rosuvastatin Calcium 40 mg 08/06/17 09:00 08/06/17 08:20 Crestor PO 02/02/18 08:59 40 mg DAILY [facility] Vital Signs Temp Pulse Resp BP Pulse Ox 37.1 C 105 H 15 106/73 97 08/06/17 03:53 08/06/17 08:20 08/06/17 03:53 08/06/17 08:20 08/06/17 03:53 Laboratory Results 08/06/17 03:30 08/05/17 08/06/17 08/07/17 05:59 05:59 05:59 Intake Total 120 Output Total 1500 Balance -1380 Physical Exam - Physical Exam General Appearance: alert, no apparent distress EENT: PERRL/EOMI, normal ENT inspection Neck: non-tender, full range of motion Respiratory: chest non-tender, lungs clear Cardiac/Chest: other (Healed sternotomy), No edema, No gallop, No JVD Abdomen: normal bowel sounds, non-tender, soft, No organomegaly Skin: normal color, warm/dry Extremities: normal range of motion, non-tender Neuro/Psych: alert, normal mood/affect, oriented x 3, No facial droop ICD10 Worksheet Patient Problems: Problems Problem Status Onset Atrial fibrillation Acute Pleural effusion Acute chronic disease mgmt/Transitional care Acute S/P CABG x 3 Acute Review of Systems - Review of Systems Constitutional: no symptoms reported EENTM: no symptoms reported Respiratory: no symptoms reported Cardiac: no symptoms reported Gastrointestinal/Abdominal: no symptoms reported Genitourinary: no symptoms Musculoskelatal: no symptoms Skin: no symptoms Neurological: no symptoms Hematologic/Lymphatic: no symptoms reported Immunologic/allergic: no symptoms reported Past Medical History - Personal History Current Tetanus Diphtheria and Acellular Pertussis (TDAP): Yes Tetanus Vaccine Date: 2008 - Medical/Surgical History Hx Asthma: No Hx Chronic Respiratory Disease: No Hx Cardiac Disease: Yes Hx Diabetes: No Hx Renal Disease: No Hx Alcoholism: No Hx Cirrhosis: No Hx HIV/AIDS: No Hx Splenectomy or Spleen Trauma: No Other PMH: PAD, VASCULAR STENT, APNEA, HTN, C/S X3 CABG 07/20/2017 - Social History Smoking Status: Former smoker
--- NOTE | 2017-08-06 10:34 | PDDCSUM ---
Discharge Summary Discharge Summary: DISCHARGE DIAGNOSES: -paroxysmal atrial fibrillation in the perioperative period after coronary bypass surgery -mild pulmonary edema caused by the atrial fibrillation -status post successful coronary artery disease and recovering well, doing cardiac rehabilitation CONSULTANTS: Dr. Donaldo Coughlin PROCEDURES: None HOSPITAL COURSE SUMMARY: This patient presented to the hospital approximately 2 and half weeks out from a bypass surgery with rapid palpitations and mild dyspnea. There is nothing that sounds like angina and she did not have any evidence of ischemia. There is no evidence of an arms with her surgical wounds. In the emergency room she did have intermittent rapid atrial fibrillation interspersed with a sinus rhythm. There was evidence of mild pulmonary edema and a peripheral edema. The patient was admitted the hospital started on amiodarone and continued on her beta-johana. Since coming to the home and school visitor unit she has remained in a sinus rhythm. She was given 1 dose of Lasix. She diuresed well and at this point is not having any dyspnea and does not have any significant peripheral edema. She is ambulating well and eating well. She appears stable for discharge to home I visited the patient together with Dr. Mendez Urias we answered all the questions that the patient and her had in detail, counseled her on all the preventive measures and on the importance of continuing her medications. We reviewed her follow-up plan including her clinic visits and cardiac rehabilitation. Reviewed warning signs for her urgent reassessment. PENDING TEST RESULTS: None MEDICATION CHANGES: Amiodarone 200 twice daily for 2 weeks then 200 daily Eliquis 5 mg twice daily Continue her usual metoprolol 50 mg twice daily and daily aspirin and statin Continue her Norvas for blood pressure She will stop taking fish oil supplements at this time FOLLOW-UP PLAN: Radiology clinic in 7-10 days Greater than 35 minutes bedside and care coordination time today
[2017-08-06 12:08] VITALS: BP 111/71; PULSE 98; RESP 18; TEMP 97.8; O2SAT 92
[2017-08-07] MEDS ORDERED: NON-FORMULARY NEW DRUG (Omega-3 Fatty Acids/Fish Oil [Omega 3 1,000 Mg Softgel] 1 EACH) PO SCH (09:00)
[2017-08-07] MEDS ORDERED: OMEGA-3 FATTY ACIDS 1,000 MG CAP PO SCH (09:00)
--- NOTE | 2017-08-07 16:07 | ASDISCHSUM ---
Discharge Information Plan Status:Home with No Needs Medically Cleared to Leave: Discharge Date:08/06/2017 11:45 AM CM D/C Disposition:Home, Routine, Self-Care ADT D/C Disposition:Home, Routine, Self-Care Projected Discharge Date:08/06/2017 11:45 AM Transportation at D/C:Family Discharge Delay Reason: Follow-Up Date:08/06/2017 11:45 AM Discharge Slot: Final Diagnosis: Placement Information Patient Contact Information Contact Name:SHADY Relationship: Address:[address] [place] [address] City:[place] Alternate Phone: [facility]/Zip Code:[place] [address] Email: Financial Information Financial Class: Primary Plan Desc:MEDICARE OUTPATIENT Primary Plan Number:[id number] Secondary Plan Desc:[employer]/M[employer] SUPPLEMENT Secondary Plan Number:[id number] Assessment Information BC CM Progress Note CM Note CM Note Notes: Patient presented to ED after experiencing rapid heart rate at home. She is s/p emergent CABG x3 on 07/[address] Purvis. She was discharged home on 07/24 with her and instructions to go to cardiac rehab 3x week. As mentioned, this morning she complained of a rapid, strong "fluttery" heart rate. She has had five episodes of A-fib in the ED. She will be admitted to the PCU for monitoring. Discharge needs TBD. Date Signed: 08/05/2017 03:13 PM Electronically Signed By:Elena Gifford RN Case Management Discharge Plan Note Case Management Discharge Discharge Order Complete? Answers: Yes Patient to Obtain Answers: via Family Medications Transportation Arranged Answers: Family/Friends Family Notified Answers: Yes Notes: present Discharge Comments Notes: Pt will dc home today w/. Met w/both of them to discuss and pt said she will continue with out pt cardiac rehab. No other dc needs. MICK notice given/signed. Date Signed: 08/06/2017 10:58 AM Electronically Signed By:Verona Vaughn RN Intervention Information Intervention Type:*BARTON-Signed Date of Service:08/06/2017 03:45 PM Patient Type:Observation Staff Member:TASHI Bass Claire Hours: Discipline: Severity: Comment:Chelly got form signed 08/06.
== END 2017-08-06 11:45 | disposition home or self-care (01) ==
LOC: F2W 15:37
PROVIDERS: ADMIT Internal Medicine; ATTEND Internal Medicine
DX: I48.0 Paroxysmal atrial fibrillation (principal); I10 Essential (primary) hypertension; G47.33 Obstructive sleep apnea (adult) (pediatric); E78.5 Hyperlipidemia, unspecified; Z86.79 Personal history of other diseases of the circulatory system
CPT/HCPCS: 71020; 93005; G0378; J1940

== ENCOUNTER → 2018-05-07 | Outpatient (CLI) | payer OTHER, MEDICARE | LOC: BMCIMAGING 12:49 | PROVIDERS: ATTEND Internal Medicine | DX: Z12.31 Encounter for screening mammogram for malignant neoplasm of breast (principal) ==